=== PATIENT | female | born 1955 | race American Indian/Alaskan Native ===

== ENCOUNTER 2017-05-08 10:10 | Outpatient (CLI) | payer MEDICAID ==
--- NOTE | 2017-05-08 11:49 | Mammography Report ---
BILATERAL MAMMOGRAM: FINDINGS: The breasts are almost entirely fat (<25% glandular). No mass, distortion, suspicious calcification, or skin change is seen. No significant change when compared to exams dating back to 2015. CAD was utilized. IMPRESSION: Negative mammogram. There is no mammographic evidence of malignancy. RECOMMENDATION: Follow-up per ACS guidelines. BI-RADS CATEGORY: 1 = Negative ACR BI-RADS MAMMOGRAPHIC CODES: 0 = Needs additional imaging evaluation; 1 = Negative; 2 = Benign; 3 = Probably benign; 4 = Suspicious; 5 = Malignant; 6 = Known biopsy-proven malignancy COMMENT: 1. Dense breast tissue, i.e., adenosis, fibrocystic changes, etc., may obscure an underlying neoplasm. 2. Approximately 10% of cancers are not detected with mammography. 3. A negative mammography report should not delay biopsy if a clinically suspicious mass is present. COMMENT: Patient follow-up letters are generated in [employer].
== END 2017-05-08 10:11 | disposition home or self-care (01) ==
LOC: MAMMO 10:10
PROVIDERS: ATTEND Family Medicine
DX: Z12.31 Encounter for screening mammogram for malignant neoplasm of breast (principal); I11.0 Hypertensive heart disease with heart failure; I50.9 Heart failure, unspecified; J44.9 Chronic obstructive pulmonary disease, unspecified
CPT/HCPCS: 77067

== ENCOUNTER 2018-05-14 13:33 | Outpatient (CLI) | payer MEDICAID ==
--- NOTE | 2018-05-14 15:53 | Mammography Report ---
BILATERAL DIGITAL SCREENING MAMMOGRAM with CAD : 05/14/18 13:33:00 CLINICAL: Routine screening. COMPARISON:05/08/17 FINDINGS: The breasts are heterogeneously dense, which may obscure small masses. No mass, architectural distortion or suspicious calcifications. IMPRESSION: No mammographic evidence of malignancy. BI-RADS CATEGORY: 2 -- Benign RECOMMENDATION: Routine mammographic screening in one year. COMMENT: Patient follow-up letters are generated by our [employer] application.
== END 2018-05-14 13:34 | disposition home or self-care (01) ==
LOC: EDBD → MAMMO 13:33
PROVIDERS: ATTEND Family Medicine
DX: Z12.31 Encounter for screening mammogram for malignant neoplasm of breast (principal); I13.0 Hypertensive heart and chronic kidney disease with heart failure and stage 1 through stage 4 chronic kidney disease, or unspecified chronic kidney disease; E11.22 Type 2 diabetes mellitus with diabetic chronic kidney disease; N18.9 Chronic kidney disease, unspecified; I50.9 Heart failure, unspecified; J44.9 Chronic obstructive pulmonary disease, unspecified; M19.90 Unspecified osteoarthritis, unspecified site
CPT/HCPCS: 77067

== ENCOUNTER 2018-08-04 15:42 | Inpatient (IN) | payer MEDICAID ==
--- NOTE | 2018-08-04 17:04 | Emergency Department Report ---
HPI - General Chief Complaint: Hypoglycemia Time Seen by Provider: 08/04/18 16:57 - HPI HPI: 62-year-old Afro-[place] Islander female presents to the emergency department after having an unresponsive episode secondary to hypoglycemia. The patient has diet-controlled diabetes and did eat breakfast this morning but skipped lunch as she slept through it. Patient was found unresponsive by someone at her personal nursing home and EMS was called. She was given an amp of D50 which then woke up and then she started feeling to increase her blood sugar as well. Her Accu-Chek after this was 127. The patient also complains of some diarrhea for the past week. Otherwise she denies any fever, nausea, vomiting, abdominal pain, back pain, chest pain or shortness of breath. She has a past medical history as well of CHF, COPD, dementia, hypertension, schizophrenia. No recent travel or sick contacts at home. She says that her primary care physician is a doctor [place]. ED Past Medical Hx - Past Medical History Hx Hypertension: Yes Hx Congestive Heart Failure: Yes Hx Diabetes: Yes Hx Arthritis: Yes Hx Psychiatric Treatment: Yes (schizophrenia,bipolar,depression,anxiety) Hx Asthma: No Hx COPD: Yes Hx Dementia: Yes (early onset) Additional medical history: diabetic retinopathy - Surgical History Additional Surgical History: eye surgery - Social History Smoking Status: Never Smoker Substance Use Type: None - Medications Home Medications: Home Medications Medication Instructions Recorded Confirmed Last Taken Type Fluorometholone [Fml Forte 0.25% 1 drops OU TID 09/19/13 04/13/15 Unknown History eye drops] Ranitidine HCl [Zantac] 150 mg PO DAILY 09/19/13 04/13/15 Unknown History Simvastatin (Nf) [Zocor TAB] 40 mg PO DAILY 09/19/13 04/13/15 Unknown History Travoprost [Travatan Z 0.004%] 1 drop OU DAILY 09/19/13 04/13/15 Unknown History glipiZIDE [Glucotrol] 10 mg PO DAILY 09/19/13 04/13/15 Unknown History Aspirin [Aspirin BABY CHEW TAB] 81 mg PO DAILY 04/13/15 04/13/15 Unknown History Docusate Sodium [Colace CAP] 100 mg PO TID 04/13/15 04/13/15 Unknown History Insulin Detemir [Levemir VIAL] 35 units SQ BID 04/13/15 04/13/15 Unknown History Polyethylene Glycol 3350 [Miralax 17 gm PO DAILY 04/13/15 04/13/15 Unknown History 3350] Zofran ODT TAB 4 mg PO DAILY PRN 04/13/15 04/13/15 Unknown History Acetaminophen [Acetaminophen TAB] 650 mg PO Q6H PRN tablet 04/19/15 Unknown Rx Benztropine [Cogentin] 1 mg PO BID #60 tablet 04/19/15 Unknown Rx Brimonidine/Timolol 0.2-0.5% 1 drops OU Q12HR #1 bottle 04/19/15 Unknown Rx [Combigan 0.2-0.5%] Brinzolamide [Azopt 1%] 1 drops OU TID #90 drops.susp 04/19/15 Unknown Rx Butalb/Acetamin/Caff 50-325-40 50 mg PO DAILY PRN #30 tablet 04/19/15 Unknown Rx [Fioricet] Carvedilol [Coreg] 6.25 mg PO BID #60 tablet 04/19/15 Unknown Rx Insulin Regular, Human [HumuLIN R] See Protocol SUB-Q AC #300 units 04/19/15 Unknown Rx Lisinopril [Zestril TAB] 40 mg PO QDAY #30 tablet 04/19/15 Unknown Rx Lurasidone HCl [Latuda] 120 mg PO QDAY #30 tablet 04/19/15 Unknown Rx Ondansetron [Zofran TAB] 4 mg PO DAILY PRN #30 tablet 04/19/15 Unknown Rx Sertraline [Zoloft] 25 mg PO DAILY #30 tablet 04/19/15 Unknown Rx guaiFENesin DM [Robitussin Dm] 10 ml PO Q6H PRN #1 oral.liqd 04/19/15 Unknown Rx risperiDONE [RisperiDONE] 4 mg PO BID #60 tab.rapdis 04/19/15 Unknown Rx ED Review of Systems ROS: Stated complaint: LOW BLOOD SUGAR Other details as noted in HPI Comment: All other systems reviewed and negative Constitutional: denies: chills, fever Eyes: denies: eye pain, vision change ENT: denies: ear pain, throat pain Respiratory: denies: cough, shortness of breath Cardiovascular: syncope (unresponsive episode). denies: chest pain, palpitations Gastrointestinal: diarrhea. denies: abdominal pain, vomiting Genitourinary: denies: dysuria, hematuria Musculoskeletal: denies: back pain, arthralgia Skin: denies: rash, lesions Neurological: denies: headache, weakness Physical Exam - Physical Exam Vital Signs: Vital Signs 08/04/18 16:21 Temperature 97.3 F L Pulse Rate 58 L Respiratory 16 Rate Blood Pressure 174/69 Blood Pressure 174/69 [Right] O2 Sat by Pulse 100 Oximetry Physical Exam: GENERAL: The patient is well-developed well-nourished. HEENT: Normocephalic. Atraumatic. Patient has moist mucous membranes. EYES: Extraocular motions are intact. NECK: Supple. Trachea is midline. CHEST/LUNGS: Clear to auscultation. There is no respiratory distress noted. HEART/CARDIOVASCULAR: Regular. There is no tachycardia. There is no obvious murmur. ABDOMEN: Abdomen is soft, nontender. Patient has normal bowel sounds. There is no abdominal distention. SKIN: Skin is warm and dry. NEURO: The patient is awake, alert, and cooperative. The patient has no focal neurologic deficits. The patient has normal speech. MUSCULOSKELETAL: There is no tenderness or deformity. There is no evidence of acute injury. ED Course Vital Signs 08/04/18 16:21 Temperature 97.3 F L Pulse Rate 58 L Respiratory 16 Rate Blood Pressure 174/69 Blood Pressure 174/69 [Right] O2 Sat by Pulse 100 Oximetry ED Medical Decision Making - Lab Data Result diagrams: 08/04/18 17:27 08/04/18 17:27 - Medical Decision Making This patient presents to the emergency department after having an unresponsive episode that appears most likely secondary to hypoglycemia. She is not currently on any insulin or oral hypoglycemics but did skip lunch. She was found to have a critically low blood sugar level by EMS and was given some D50. Her blood sugar did go up upon presentation here but has gone down to critically low levels multiple times despite getting D50, juice, crackers. CT scan of the head did not really bleed, shift, mass, ischemia or any other acute process. Labs also show some renal insufficiency. First the patient was started on a D5 drip but once again her blood sugar went down to about 40 so this was now switched to a D10 drip. The patient will be admitted to the hospital for further evaluation and treatment was excepted for admission by the hospitalist, Dr. Julio. Critical Care Time: Yes Critical care time in (mins) excluding proc time.: 35 Critical care attestation.: If time is entered above; I have spent that time in minutes in the direct care of this critically ill patient, excluding procedure time. Critical care time spent on this patient during her initial evaluation, multiple re-evaluations, ordering and interpretation of labs and imaging, ordering and administration of D5 and D10 drip's. This patient has a higher probability of clinically significant, sudden, or life-threatening deterioration that has required multiple evaluations and direct attention, intervention, and management. Critical Care Time: 35 minutes ED Disposition Clinical Impression: Diabetic hypoglycemia, Unresponsive episode Chronic kidney disease (CKD) Qualifiers: Chronic kidney disease stage: unspecified stage Qualified Code(s): N18.9 - Chronic kidney disease, unspecified Hypertension Qualifiers: Hypertension type: unspecified Qualified Code(s): I10 - Essential (primary) hypertension Disposition: OP ADMIT IP TO THIS HOSP Is pt being admited?: Yes Condition: Serious Instructions: Hypertension (ED) Time of Disposition: 00:24
[2018-08-04 17:41] LABS: Basophils % (Auto) 0.4 % (0.0-1.8); Eosinophils # (Auto) 0.1 K/mm3 (0.0-0.4); Eosinophils % (Auto) 0.9 % (0.0-4.3); Hematocrit 32.4 % (30.3-42.9); Hemoglobin 10.5 gm/dl (10.1-14.3); Lymphocytes # (Auto) 0.7 K/mm3 (1.2-5.4); Lymphocytes % (Auto) 8.8 % (13.4-35.0); Mean Corpuscular HGB Conc 32 % (30-34); Mean Corpuscular Volume 89 fl (79-97); Monocytes # (Auto) 0.6 K/mm3 (0.0-0.8); Monocytes % (Auto) 7.9 % (0.0-7.3); Platelet Count 197 K/mm3 (140-440); Red Blood Count 3.65 M/mm3 (3.65-5.03); Red Cell Distribution Width 13.2 % (13.2-15.2)
[2018-08-04 17:59] LABS: Albumin 3.7 g/dL (3.9-5); Calcium 8.7 mg/dL (8.4-10.2)
[2018-08-04] MEDS ORDERED: D50W (25GM) Syringe IV ONE (18:01)
[2018-08-04] MEDS: D10W 1,000 ML IV SCH (22:30)
[2018-08-04] MEDS ORDERED: D5NS 1,000 ML IV SCH (23:00)
[2018-08-05] MEDS ORDERED: TYLENOL PO PRN (00:18)
[2018-08-05] MEDS ORDERED: ZOFRAN IV PRN (00:18)
[2018-08-05] MEDS ORDERED: SODIUM CHLORIDE FLUSH SYRINGE 10 ML IV PRN (00:18)
--- NOTE | 2018-08-05 07:07 | History and Physical Report ---
<PENNY JORDAN - Last Filed: 08/05/18 07:07> History of Present Illness Date of examination: 08/05/18 Date of admission: 08/05/18 00:40 Chief complaint: hypoglycemia History of present illness: Pt is a 62-year-old female with PMHx of CHF, COPD, dementia, hypertension, schizophrenia who was brought to the ER by EMS for hypoglycemia. Patient was [facility] the [facility] and EMS was called. Her blood sugar was reported to be in the low 20, she was given an amp of D50 which increased he blood glucose to 127. In the ER, pt states that she had skipped her lunch today because she fell asleep, she complains of some diarrhea that has been going on for 1 week, she denies any fever, nausea, vomiting, denies abd ominal pain. She was started on continuous IV infusion and admitted for further evaluation of her hypoglycemia. Past History Past Medical History: COPD, heart failure, hyperlipidemia, other (dementia, schyzophrenia) Past Surgical History: No surgical history Social history: no significant social history (lives in personal prison) Medications and Allergies Allergies Allergy/AdvReac Type Severity Reaction Status Date / Time citric acid Allergy Unknown Verified 09/16/13 12:34 haloperidol [From Haldol] Allergy Unknown Verified 09/16/13 12:34 haloperidol lactate Allergy Unknown Verified 09/16/13 12:34 [From Haldol] Home Medications Medication Instructions Recorded Confirmed Last Taken Type Fluorometholone [Fml Forte 0.25% 1 drops OU TID 09/19/13 04/13/15 Unknown History eye drops] Ranitidine HCl [Zantac] 150 mg PO DAILY 09/19/13 04/13/15 Unknown History Simvastatin (Nf) [Zocor TAB] 40 mg PO DAILY 09/19/13 04/13/15 Unknown History Travoprost [Travatan Z 0.004%] 1 drop OU DAILY 09/19/13 04/13/15 Unknown History Aspirin [Aspirin BABY CHEW TAB] 81 mg PO DAILY 04/13/15 04/13/15 Unknown History Docusate Sodium [Colace CAP] 100 mg PO TID 04/13/15 04/13/15 Unknown History Polyethylene Glycol 3350 [Miralax 17 gm PO DAILY 04/13/15 04/13/15 Unknown History 3350] Acetaminophen [Acetaminophen TAB] 650 mg PO Q6H PRN tablet 04/19/15 Unknown Rx Benztropine [Cogentin] 1 mg PO BID #60 tablet 04/19/15 Unknown Rx Brimonidine/Timolol 0.2-0.5% 1 drops OU Q12HR #1 bottle 04/19/15 Unknown Rx [Combigan 0.2-0.5%] Brinzolamide [Azopt 1%] 1 drops OU TID #90 drops.susp 04/19/15 Unknown Rx Butalb/Acetamin/Caff 50-325-40 50 mg PO DAILY PRN #30 tablet 04/19/15 Unknown Rx [Fioricet] Carvedilol [Coreg] 6.25 mg PO BID #60 tablet 04/19/15 Unknown Rx Lurasidone HCl [Latuda] 120 mg PO QDAY #30 tablet 04/19/15 Unknown Rx Ondansetron [Zofran TAB] 4 mg PO DAILY PRN #30 tablet 04/19/15 Unknown Rx Sertraline [Zoloft] 25 mg PO DAILY #30 tablet 04/19/15 Unknown Rx guaiFENesin DM [Robitussin Dm] 10 ml PO Q6H PRN #1 oral.liqd 04/19/15 Unknown Rx risperiDONE [RisperiDONE] 4 mg PO BID #60 tab.rapdis 04/19/15 Unknown Rx Dextrose 50% in Water [D50W (25GM) 50 ml IV PRN PRN syringe 08/08/18 Unknown Rx Syringe] hydrALAZINE [Apresoline TAB] 25 mg PO BID #60 tablet 08/08/18 Unknown Rx Active Meds: Active Medications Acetaminophen (Tylenol) 650 mg PO Q4H PRN PRN Reason: Pain MILD(1-3)/Fever >100.5/MORA Dextrose (D10w) 1,000 mls @ 100 mls/hr IV DIRECT AMA Last Admin: 08/04/18 22:30 Dose: 100 mls/hr Documented by: Ondansetron HCl (Zofran) 4 mg IV Q8H PRN PRN Reason: Nausea And Vomiting Sodium Chloride (Sodium Chloride Flush Syringe 10 Ml) 10 ml IV BID AMA Sodium Chloride (Sodium Chloride Flush Syringe 10 Ml) 10 ml IV PRN PRN PRN Reason: LINE FLUSH Exam - Constitutional Vitals: Temp Pulse Resp BP Pulse Ox 98.2 F 68 13 182/80 100 08/05/18 01:40 08/05/18 06:16 08/05/18 06:16 08/05/18 06:16 08/05/18 06:16 General appearance: Present: mild distress - EENT Eyes: Present: EOM intact ENT: hearing intact - Neck Neck: Present: normal ROM - Respiratory Respiratory: right: diminished - Cardiovascular Rhythm: regular Heart Sounds: Present: S1 & S2 Peripheral Pulses: within normal limits - Abdominal General gastrointestinal: Present: non-tender, non-distended Female genitourinary: Present: deferred - Rectal Rectal Exam: deferred - Integumentary Integumentary: Present: warm - Musculoskeletal Musculoskeletal: strength equal bilaterally - Psychiatric Psychiatric: cooperative - Neurologic Neurologic: moves all extremities Results - Labs CBC & Chem 7: 08/04/18 17:27 08/04/18 17:27 Labs: Laboratory Last Values WBC 8.0 K/mm3 (4.5-11.0) 08/04/18 17:27 RBC 3.65 M/mm3 (3.65-5.03) 08/04/18 17:27 Hgb 10.5 gm/dl (10.1-14.3) 08/04/18 17:27 Hct 32.4 % (30.3-42.9) 08/04/18 17:27 MCV 89 fl (79-97) 08/04/18 17:27 MCH 29 pg (28-32) 08/04/18 17:27 MCHC 32 % (30-34) 08/04/18 17:27 RDW 13.2 % (13.2-15.2) 08/04/18 17:27 Plt Count 197 K/mm3 (140-440) 08/04/18 17:27 Lymph % (Auto) 8.8 % (13.4-35.0) L 08/04/18 17:27 [place] % (Auto) 7.9 % (0.0-7.3) H 08/04/18 17:27 Eos % (Auto) 0.9 % (0.0-4.3) 08/04/18 17:27 Baso % (Auto) 0.4 % (0.0-1.8) 08/04/18 17:27 Lymph # 0.7 K/mm3 (1.2-5.4) L 08/04/18 17:27 [place] # 0.6 K/mm3 (0.0-0.8) 08/04/18 17:27 Eos # 0.1 K/mm3 (0.0-0.4) 08/04/18 17:27 Baso # 0.0 K/mm3 (0.0-0.1) 08/04/18 17:27 Seg Neutrophils % 82.0 % (40.0-70.0) H 08/04/18 17:27 Seg Neutrophils # 6.6 K/mm3 (1.8-7.7) 08/04/18 17:27 VBG pH 7.275 (7.320-7.420) L 08/04/18 17:27 Sodium 144 mmol/L (137-145) 08/04/18 17:27 Potassium 3.7 mmol/L (3.6-5.0) 08/04/18 17:27 Chloride 110.2 mmol/L (98-107) H 08/04/18 17:27 Carbon Dioxide 24 mmol/L (22-30) 08/04/18 17:27 Anion Gap 14 mmol/L 08/04/18 17:27 BUN 34 mg/dL (7-17) H 08/04/18 17:27 Creatinine 1.9 mg/dL (0.7-1.2) H 08/04/18 17:27 Estimated GFR 32 ml/min 08/04/18 17:27 BUN/Creatinine Ratio 18 % 08/04/18 17:27 Glucose 47 mg/dL (65-100) L 08/04/18 17:27 POC Glucose 74 (70-105) 08/05/18 06:50 Calcium 8.7 mg/dL (8.4-10.2) 08/04/18 17:27 Total Bilirubin 0.30 mg/dL (0.1-1.2) 08/04/18 17:27 AST 13 units/L (5-40) 08/04/18 17:27 ALT 8 units/L (7-56) 08/04/18 17:27 Alkaline Phosphatase 60 units/L (35-129) 08/04/18 17:27 Total Protein 6.6 g/dL (6.3-8.2) 08/04/18 17:27 Albumin 3.7 g/dL (3.9-5) L 08/04/18 17:27 Albumin/Globulin Ratio 1.3 % 08/04/18 17:27 TSH 1.100 mlU/mL (0.270-4.200) 08/04/18 17:27 Assessment and Plan Assessment and plan: 1. Hypoglycemia 2. CHF (stable) next 3. COPD (stable) 4. Hypertension 5. Dementia 6. Schizophrenia Plan: Patient is admitted for hypoglycemia Monitor blood glucose every 4 hours Continue glycemic management IV fluid with D5 at 50 per hour Resume diet Resume home meds Plan of care discussed with the patient, needs reinforcement Patient's condition and plan of care discussed with Dr. Julio Advance Directives: Yes VTE prophylaxis?: Chemical Plan of care discussed with patient/family: Yes <PAULINO JULIO - Last Filed: 08/12/18 21:17> History of Present Illness Date of admission: 08/05/18 00:40 Exam - Constitutional Vitals: Temp Pulse Resp BP Pulse Ox 98.6 F 72 18 142/70 97 08/08/18 08:51 08/08/18 15:54 08/08/18 10:00 08/08/18 15:54 08/08/18 08:51 Results - Labs CBC & Chem 7: 08/06/18 04:44 08/07/18 04:40 Labs: Laboratory Last Values WBC 4.2 K/mm3 (4.5-11.0) L 08/06/18 04:44 RBC 3.52 M/mm3 (3.65-5.03) L 08/06/18 04:44 Hgb 10.0 gm/dl (10.1-14.3) L 08/06/18 04:44 Hct 31.2 % (30.3-42.9) 08/06/18 04:44 MCV 89 fl (79-97) 08/06/18 04:44 MCH 29 pg (28-32) 08/06/18 04:44 MCHC 32 % (30-34) 08/06/18 04:44 RDW 13.2 % (13.2-15.2) 08/06/18 04:44 Plt Count 181 K/mm3 (140-440) 08/06/18 04:44 Lymph % (Auto) 8.8 % (13.4-35.0) L 08/04/18 17:27 [place] % (Auto) Journeyman Carpenter 08/06/18 04:44 Eos % (Auto) 0.9 % (0.0-4.3) 08/04/18 17:27 Baso % (Auto) 0.4 % (0.0-1.8) 08/04/18 17:27 Lymph # 0.7 K/mm3 (1.2-5.4) L 08/04/18 17:27 [place] # 0.6 K/mm3 (0.0-0.8) 08/04/18 17:27 Eos # 0.1 K/mm3 (0.0-0.4) 08/04/18 17: Baso # 0.0 K/mm3 (0.0-0.1) 08/04/18 17:27 Add Manual Diff Complete 08/06/18 04:44 Total Counted 100 08/06/18 04:44 Seg Neutrophils % 82.0 % (40.0-70.0) H 08/04/18 17:27 Seg Neuts % (Manual) 57.0 % (40.0-70.0) 08/06/18 04:44 Band Neutrophils % 0 % 08/06/18 04:44 Lymphocytes % (Manual) 32.0 % (13.4-35.0) 08/06/18 04:44 Reactive Lymphs % (Man) 0 % 08/06/18 04:44 Monocytes % (Manual) 4.0 % (0.0-7.3) 08/06/18 04:44 Eosinophils % (Manual) 7.0 % (0.0-4.3) H 08/06/18 04:44 Basophils % (Manual) 0 % (0.0-1.8) 08/06/18 04:44 Metamyelocytes % 0 % 08/06/18 04:44 Myelocytes % 0 % 08/06/18 04:44 Promyelocytes % 0 % 08/06/18 04:44 Blast Cells % 0 % 08/06/18 04:44 Nucleated RBC % Not Reportable 08/06/18 04:44 Seg Neutrophils # 6.6 K/mm3 (1.8-7.7) 08/04/18 17:27 Seg Neutrophils # Man 2.4 K/mm3 (1.8-7.7) 08/06/18 04:44 Band Neutrophils # 0.0 K/mm3 08/06/18 04:44 Lymphocytes # (Manual) 1.3 K/mm3 (1.2-5.4) 08/06/18 04:44 Abs React Lymphs (Man) 0.0 K/mm3 08/06/18 04:44 Monocytes # (Manual) 0.2 K/mm3 (0.0-0.8) 08/06/18 04:44 Eosinophils # (Manual) 0.3 K/mm3 (0.0-0.4) 08/06/18 04:44 Basophils # (Manual) 0.0 K/mm3 (0.0-0.1) 08/06/18 04:44 Metamyelocytes # 0.0 K/mm3 08/06/18 04:44 Myelocytes # 0.0 K/mm3 08/06/18 04:44 Promyelocytes # 0.0 K/mm3 08/06/18 04:44 Blast Cells # 0.0 K/mm3 08/06/18 04:44 WBC Morphology Not Reportable 08/06/18 04:44 Hypersegmented Neuts Not Reportable 08/06/18 04:44 Hyposegmented Neuts Not Reportable 08/06/18 04:44 Hypogranular Neuts Not Reportable 08/06/18 04:44 Smudge Cells Not Reportable 08/06/18 04:44 Toxic Granulation Not Reportable 08/06/18 04:44 Toxic Vacuolation Not Reportable 08/06/18 04:44 Dohle Bodies Not Reportable 08/06/18 04:44 Pelger-Huet Anomaly Not Reportable 08/06/18 04:44 Angel Luis Rods Not Reportable 08/06/18 04:44 Platelet Estimate Consistent w auto 08/06/18 04:44 Clumped Platelets Not Reportable 08/06/18 04:44 Plt Clumps, EDTA Not Reportable 08/06/18 04:44 Large Platelets Not Reportable 08/06/18 04:44 Giant Platelets Not Reportable 08/06/18 04:44 Platelet Satelliting Not Reportable 08/06/18 04:44 Plt Morphology Comment Not Reportable 08/06/18 04:44 RBC Morphology Not Reportable 08/06/18 04:44 Dimorphic RBCs Not Reportable 08/06/18 04:44 Polychromasia Not Reportable 08/06/18 04:44 Hypochromasia 1+ 08/06/18 04:44 Poikilocytosis Not Reportable 08/06/18 04:44 Anisocytosis Not Reportable 08/06/18 04:44 Microcytosis Not Reportable 08/06/18 04:44 Macrocytosis Not Reportable 08/06/18 04:44 Spherocytes Not Reportable 08/06/18 04:44 Pappenheimer Bodies Not Reportable 08/06/18 04:44 Sickle Cells Not Reportable 08/06/18 04:44 Target Cells Not Reportable 08/06/18 04:44 Tear Drop Cells Not Reportable 08/06/18 04:44 Ovalocytes Not Reportable 08/06/18 04:44 Helmet Cells Not Reportable 08/06/18 04:44 [place] Bodies Not Reportable 08/06/18 04:44 [place] Rings Not Reportable 08/06/18 04:44 Jessica Cells Not Reportable 08/06/18 04:44 Bite Cells Not Reportable 08/06/18 04:44 Crenated Cell Not Reportable 08/06/18 04:44 Elliptocytes Not Reportable 08/06/18 04:44 Acanthocytes (Spur) Not Reportable 08/06/18 04:44 Rouleaux Not Reportable 08/06/18 04:44 Hemoglobin C Crystals Not Reportable 08/06/18 04:44 Schistocytes Not Reportable 08/06/18 04:44 Malaria parasites Not Reportable 08/06/18 04:44 Jorje Bodies Not Reportable 08/06/18 04:44 Hem Pathologist Commnt No 08/06/18 04:44 VBG pH 7.275 (7.320-7.420) L 08/04/18 17:27 Sodium 139 mmol/L (137-145) 08/07/18 04:40 Potassium 4.8 mmol/L (3.6-5.0) 08/07/18 04:40 Chloride 104.6 mmol/L (98-107) 08/07/18 04:40 Carbon Dioxide 23 mmol/L (22-30) 08/07/18 04:40 Anion Gap 16 mmol/L 08/07/18 04:40 BUN 32 mg/dL (7-17) H 08/07/18 04:40 Creatinine 1.9 mg/dL (0.7-1.2) H 08/07/18 04:40 Estimated GFR 32 ml/min 08/07/18 04:40 BUN/Creatinine Ratio 17 % 08/07/18 04:40 Glucose 142 mg/dL (65-100) H 08/07/18 04:40 POC Glucose 107 (70-105) H 08/08/18 17:30 Hemoglobin A1c 5.7 % (4-6) 08/06/18 04:44 Calcium 8.3 mg/dL (8.4-10.2) L 08/07/18 04:40 Phosphorus 3.00 mg/dL (2.5-4.5) 08/06/18 04:44 Magnesium 2.10 mg/dL (1.7-2.3) 08/07/18 04:40 Total Bilirubin 0.30 mg/dL (0.1-1.2) 08/04/18 17:27 AST 13 units/L (5-40) 08/04/18 17:27 ALT 8 units/L (7-56) 08/04/18 17:27 Alkaline Phosphatase 60 units/L (35-129) 08/04/18 17:27 Total Protein 6.6 g/dL (6.3-8.2) 08/04/18 17:27 Albumin 3.7 g/dL (3.9-5) L 08/04/18 17:27 Albumin/Globulin Ratio 1.3 % 08/04/18 17:27 TSH 1.100 mlU/mL (0.270-4.200) 08/04/18 17:27 Assessment and Plan Assessment and plan: Patient discussed with the SLITTER CREASER SLOTTER OPERATOR-C, I agree with the above documentations.
[2018-08-05] MEDS ORDERED: D5NS 0.2% 0 ML IV ONE (10:06)
--- NOTE | 2018-08-05 11:49 | Progress Note ---
Assessment and Plan Assessment and plan: -- Hypoglycemia; Minimal improvement and continue D10W Accu-Cheks, D50 as needed, hold all the oral hypoglycemics and insulin Check A1c, diabetic education when patient is stable --Type 2 diabetes mellitus; on insulin and oral hypoglycemics at home No hypoglycemia, hold all the medications and closely monitor sugars --Hypertension; moderate control, resume home antihypertensives and when necessary medications --Chronic mild systolic congestive heart failure; Ejection fraction 45-50%, continue current management --Dyslipidemia; continue statin --Acute kidney injury; secondary to ATN Gentle hydration, avoid nephrotoxins Nephrology evaluation if no improvement --Dementia; supportive care --History of schizophrenia; continue current psych medications Psych evaluation if needed --DVT prophylaxis; Lovenox --Full CODE STATUS Closely monitor the patient and adjust the management as needed Plan of care reviewed with the patient and her nurse History Interval history: Patient seen and examined medical records reviewed Admitted with hypoglycemia, on D10W Blood sugars are 114 and 89, Patient feels slightly better Vital signs noted Hospitalist Physical - Constitutional Vitals: Temp Pulse Resp BP Pulse Ox 97.9 F 68 16 170/70 98 08/05/18 10:43 08/05/18 10:43 08/05/18 10:43 08/05/18 10:43 08/05/18 08:00 General appearance: Present: no acute distress, well-nourished, other (confused) - EENT Eyes: Present: PERRL, EOM intact - Neck Neck: Present: supple, normal ROM - Respiratory Respiratory effort: normal Respiratory: bilateral: diminished, negative: rales, rhonchi - Cardiovascular Rhythm: regular Heart Sounds: Present: S1 & S2 - Extremities Extremities: no ischemia, No edema - Abdominal General gastrointestinal: soft, non-tender, non-distended, normal bowel sounds - Integumentary Integumentary: Present: clear, warm - Psychiatric Psychiatric: appropriate mood/affect, other (confused) - Neurologic Neurologic: CNII-XII intact, moves all extremities Results - Labs CBC & Chem 7: 08/04/18 17:27 08/04/18 17:27 Labs: Laboratory Last Values WBC 8.0 K/mm3 (4.5-11.0) 08/04/18 17:27 RBC 3.65 M/mm3 (3.65-5.03) 08/04/18 17: Hgb 10.5 gm/dl (10.1-14.3) 08/04/18: Hct 32.4 % (30.3-42.9) 08/04/18: MCV 89 fl (79-97) 08/04/18 17: MCH 29 pg (28-32) 08/04/18: MCHC 32 % (30-34) 08/04/18: RDW 13.2 % (13.2-15.2) 08/04/18: Plt Count 197 K/mm3 (140-440) 08/04/18: Lymph % (Auto) 8.8 % (13.4-35.0) L 08/04/18: [place] % (Auto) 7.9 % (0.0-7.3) H 08/04/18: Eos % (Auto) 0.9 % (0.0-4.3) 08/04/18: Baso % (Auto) 0.4 % (0.0-1.8) 08/04/18: Lymph # 0.7 K/mm3 (1.2-5.4) L 08/04/18: [place] # 0.6 K/mm3 (0.0-0.8) 08/04/18: Eos # 0.1 K/mm3 (0.0-0.4) 08/04/18: Baso # 0.0 K/mm3 (0.0-0.1) 08/04/18: Seg Neutrophils % 82.0 % (40.0-70.0) H 08/04/18: Seg Neutrophils # 6.6 K/mm3 (1.8-7.7) 08/04/18: VBG pH 7.275 (7.320-7.420) L 08/04/18 17: Sodium 144 mmol/L (137-145) 08/04/18: Potassium 3.7 mmol/L (3.6-5.0) 08/04/18: Chloride 110.2 mmol/L (98-107) H 08/04/18: Carbon Dioxide 24 mmol/L (22-30) 08/04/18 17:27 Anion Gap 14 mmol/L 08/04/18 17:27 BUN 34 mg/dL (7-17) H 08/04/18 17:27 Creatinine 1.9 mg/dL (0.7-1.2) H 08/04/18 17:27 Estimated GFR 32 ml/min 08/04/18 17:27 BUN/Creatinine Ratio 18 % 08/04/18 17:27 Glucose 47 mg/dL (65-100) L 08/04/18 17:27 POC Glucose 74 (70-105) 08/05/18 06:50 Calcium 8.7 mg/dL (8.4-10.2) 08/04/18 17:27 Total Bilirubin 0.30 mg/dL (0.1-1.2) 08/04/18 17:27 AST 13 units/L (5-40) 08/04/18 17:27 ALT 8 units/L (7-56) 08/04/18 17:27 Alkaline Phosphatase 60 units/L (35-129) 08/04/18 17:27 Total Protein 6.6 g/dL (6.3-8.2) 08/04/18 17:27 Albumin 3.7 g/dL (3.9-5) L 08/04/18 17:27 Albumin/Globulin Ratio 1.3 % 08/04/18 17:27 TSH 1.100 mlU/mL (0.270-4.200) 08/04/18 17:27 Active Medications - Current Medications Current Medications: Generic Name Dose Route Start Last Admin Trade Name Abdielq PRN Reason Stop Dose Admin Acetaminophen 650 mg 08/05/18 00:18 Tylenol PO Q4H PRN Pain MILD(1-3)/Fever >100.5/MORA Dextrose 1,000 mls @ 100 mls/hr 08/05/18 00:00 08/04/18 22:30 D10w IV 100 mls/hr DIRECT AMA Administration Ondansetron HCl 4 mg 08/05/18 00:18 Zofran IV Q8H PRN Nausea And Vomiting Sodium Chloride 10 ml 08/05/18 10:00 Sodium Chloride Flush Syringe 10 Ml IV BID AMA Sodium Chloride 10 ml 08/05/18 00:18 Sodium Chloride Flush Syringe 10 Ml IV PRN PRN LINE FLUSH
[2018-08-05] MEDS ORDERED: FIORICET PO PRN (19:11)
[2018-08-05] MEDS ORDERED: D50W (25GM) Syringe IV PRN (19:14)
[2018-08-05] MEDS ORDERED: RISPERIDONE 4 MG PO SCH (22:00)
[2018-08-05] MEDS: COGENTIN PO SCH (22:56)
[2018-08-05] MEDS: RisperDAL PO SCH ×2 (22:56→22:58)
[2018-08-05] MEDS: COREG PO SCH (22:56)
[2018-08-05] MEDS: SODIUM CHLORIDE FLUSH SYRINGE 10 ML IV SCH (22:56)
[2018-08-05] MEDS: COMBIGAN 0.2-0.5% OU SCH (22:57)
[2018-08-05] MEDS: HumaLOG SUB-Q SCH (22:57)
[2018-08-06 05:49] LABS: Hematocrit 31.2 % (30.3-42.9); Mean Corpuscular HGB Conc 32 % (30-34); Mean Corpuscular Volume 89 fl (79-97); Platelet Count 181 K/mm3 (140-440); Red Blood Count 3.52 M/mm3 (3.65-5.03); Red Cell Distribution Width 13.2 % (13.2-15.2)
[2018-08-06 06:25] LABS: Calcium 8.2 mg/dL (8.4-10.2)
[2018-08-06 07:06] LABS: Basophils % (Manual) 0 % (0.0-1.8); Total Cells Counted 100
[2018-08-06 07:07] LABS: Hypochromasia 1+; Platelet Estimate Consistent w Auto
[2018-08-06] MEDS: HumaLOG SUB-Q SCH ×4 (08:29→21:53)
[2018-08-06] MEDS: LOVENOX SUB-Q SCH (09:00)
[2018-08-06] MEDS: RisperDAL PO SCH ×4 (09:01→21:46)
[2018-08-06] MEDS: COREG PO SCH ×2 (09:01→21:45)
[2018-08-06] MEDS: COGENTIN PO SCH ×2 (09:02→21:49)
[2018-08-06] MEDS: BABY ASPIRIN PO SCH (09:02)
[2018-08-06] MEDS: COMBIGAN 0.2-0.5% OU SCH ×2 (09:03→21:45)
[2018-08-06] MEDS: SODIUM CHLORIDE FLUSH SYRINGE 10 ML IV SCH ×3 (09:14→21:46)
--- NOTE | 2018-08-06 11:16 | Progress Note ---
Assessment and Plan Assessment and plan: --Metabolic encephalopathy; due to hypoglycemia Significantly improved, alert awake oriented 3 confused at times -- Hypoglycemia; resolved Patient's hemoglobin A1c is < 6 hold all the diabetes medicines continue D10 Accu-Cheks, D50 as needed, hold all the oral hypoglycemics and insulin Check A1c, diabetic education when patient is stable --Type 2 diabetes mellitus; patient's blood sugars were in the lower range Hold all the diabetic medications and --Hypertension; moderate control, resume home antihypertensives and when necessary medications --Chronic mild systolic congestive heart failure; Ejection fraction 45-50%, continue current management --Dyslipidemia; continue statin --Acute kidney injury; secondary to ATN Gentle hydration, avoid nephrotoxins Nephrology evaluation if no improvement --Dementia; supportive care --History of schizophrenia; continue current psych medications Psych evaluation if needed --DVT prophylaxis; Lovenox --Full CODE STATUS Closely monitor the patient and adjust the management as needed Plan of care reviewed with the patient and her nurse History Interval history: Patient seen and examined medical records reviewed No new events reported by the nursing staff Patient remains on D10, blood sugars on the lower range Patient is alert and awake responding appropriately Vital signs noted Hospitalist Physical - Constitutional Vitals: Temp Pulse Resp BP Pulse Ox 98.0 F 64 18 179/73 97 08/06/18 07:43 08/06/18 09:01 08/06/18 07:43 08/06/18 09:01 08/06/18 04:39 General appearance: Present: no acute distress, well-nourished, other (confused) - EENT Eyes: Present: PERRL, EOM intact - Neck Neck: Present: supple, normal ROM - Respiratory Respiratory effort: normal Respiratory: bilateral: diminished, negative: rales, rhonchi, wheezing - Cardiovascular Rhythm: regular Heart Sounds: Present: S1 & S2 - Extremities Extremities: no ischemia, No edema - Abdominal General gastrointestinal: soft, non-tender, non-distended, normal bowel sounds - Integumentary Integumentary: Present: clear, warm - Psychiatric Psychiatric: appropriate mood/affect, cooperative, other (confused at time) - Neurologic Neurologic: CNII-XII intact, moves all extremities Results - Labs CBC & Chem 7: 08/06/18 04:44 08/06/18 04:44 Labs: Laboratory Last Values WBC 4.2 K/mm3 (4.5-11.0) L 08/06/18 04:44 RBC 3.52 M/mm3 (3.65-5.03) L 08/06/18 04:44 Hgb 10.0 gm/dl (10.1-14.3) L 08/06/18 04:44 Hct 31.2 % (30.3-42.9) 08/06/18 04:44 MCV 89 fl (79-97) 08/06/18 04:44 MCH 29 pg (28-32) 08/06/18 04:44 MCHC 32 % (30-34) 08/06/18 04:44 RDW 13.2 % (13.2-15.2) 08/06/18 04:44 Plt Count 181 K/mm3 (140-440) 08/06/18 04:44 Lymph % (Auto) 8.8 % (13.4-35.0) L 08/04/18 17:27 [place] % (Auto) Securities Teller 08/06/18 04:44 Eos % (Auto) 0.9 % (0.0-4.3) 08/04/18 17:27 Baso % (Auto) 0.4 % (0.0-1.8) 08/04/18 17:27 Lymph # 0.7 K/mm3 (1.2-5.4) L 08/04/18 17:27 [place] # 0.6 K/mm3 (0.0-0.8) 08/04/18 17:27 Eos # 0.1 K/mm3 (0.0-0.4) 08/04/18 17:27 Baso # 0.0 K/mm3 (0.0-0.1) 08/04/18 17:27 Add Manual Diff Complete 08/06/18 04:44 Total Counted 100 08/06/18 04:44 Seg Neutrophils % 82.0 % (40.0-70.0) H 08/04/18 17:27 Seg Neuts % (Manual) 57.0 % (40.0-70.0) 08/06/18 04:44 Band Neutrophils % 0 % 08/06/18 04:44 Lymphocytes % (Manual) 32.0 % (13.4-35.0) 08/06/18 04:44 Reactive Lymphs % (Man) 0 % 08/06/18 04:44 Monocytes % (Manual) 4.0 % (0.0-7.3) 08/06/18 04:44 Eosinophils % (Manual) 7.0 % (0.0-4.3) H 08/06/18 04:44 Basophils % (Manual) 0 % (0.0-1.8) 08/06/18 04:44 Metamyelocytes % 0 % 08/06/18 04:44 Myelocytes % 0 % 08/06/18 04:44 Promyelocytes % 0 % 08/06/18 04:44 Blast Cells % 0 % 08/06/18 04:44 Nucleated RBC % Not Reportable 08/06/18 04:44 Seg Neutrophils # 6.6 K/mm3 (1.8-7.7) 08/04/18 17:27 Seg Neutrophils # Man 2.4 K/mm3 (1.8-7.7) 08/06/18 04:44 Band Neutrophils # 0.0 K/mm3 08/06/18 04:44 Lymphocytes # (Manual) 1.3 K/mm3 (1.2-5.4) 08/06/18 04:44 Abs React Lymphs (Man) 0.0 K/mm3 08/06/18 04:44 Monocytes # (Manual) 0.2 K/mm3 (0.0-0.8) 08/06/18 04:44 Eosinophils # (Manual) 0.3 K/mm3 (0.0-0.4) 08/06/18 04:44 Basophils # (Manual) 0.0 K/mm3 (0.0-0.1) 08/06/18 04:44 Metamyelocytes # 0.0 K/mm3 08/06/18 04:44 Myelocytes # 0.0 K/mm3 08/06/18 04:44 Promyelocytes # 0.0 K/mm3 08/06/18 04:44 Blast Cells # 0.0 K/mm3 08/06/18 04:44 WBC Morphology Not Reportable 08/06/18 04:44 Hypersegmented Neuts Not Reportable 08/06/18 04:44 Hyposegmented Neuts Not Reportable 08/06/18 04:44 Hypogranular Neuts Not Reportable 08/06/18 04:44 Smudge Cells Not Reportable 08/06/18 04:44 Toxic Granulation Not Reportable 08/06/18 04:44 Toxic Vacuolation Not Reportable 08/06/18 04:44 Dohle Bodies Not Reportable 08/06/18 04:44 Pelger-Huet Anomaly Not Reportable 08/06/18 04:44 Angel Luis Rods Not Reportable 08/06/18 04:44 Platelet Estimate Consistent w auto 08/06/18 04:44 Clumped Platelets Not Reportable 08/06/18 04:44 Plt Clumps, EDTA Not Reportable 08/06/18 04:44 Large Platelets Not Reportable 08/06/18 04:44 Giant Platelets Not Reportable 08/06/18 04:44 Platelet Satelliting Not Reportable 08/06/18 04:44 Plt Morphology Comment Not Reportable 08/06/18 04:44 RBC Morphology Not Reportable 08/06/18 04:44 Dimorphic RBCs Not Reportable 08/06/18 04:44 Polychromasia Not Reportable 08/06/18 04:44 Hypochromasia 1+ 08/06/18 04:44 Poikilocytosis Not Reportable 08/06/18 04:44 Anisocytosis Not Reportable 08/06/18 04:44 Microcytosis Not Reportable 08/06/18 04:44 Macrocytosis Not Reportable 08/06/18 04:44 Spherocytes Not Reportable 08/06/18 04:44 Pappenheimer Bodies Not Reportable 08/06/18 04:44 Sickle Cells Not Reportable 08/06/18 04:44 Target Cells Not Reportable 08/06/18 04:44 Tear Drop Cells Not Reportable 08/06/18 04:44 Ovalocytes Not Reportable 08/06/18 04:44 Helmet Cells Not Reportable 08/06/18 04:44 Cline-Blunt Bodies Not Reportable 08/06/18 04:44 [place] Rings Not Reportable 08/06/18 04:44 [place] Cells Not Reportable 08/06/18 04:44 Bite Cells Not Reportable 08/06/18 04:44 Crenated Cell Not Reportable 08/06/18 04:44 Elliptocytes Not Reportable 08/06/18 04:44 Acanthocytes (Spur) Not Reportable 08/06/18 04:44 Rouleaux Not Reportable 08/06/18 04:44 Hemoglobin C Crystals Not Reportable 08/06/18 04:44 Schistocytes Not Reportable 08/06/18 04:44 Malaria parasites Not Reportable 08/06/18 04:44 Jorje Bodies Not Reportable 08/06/18 04:44 Hem Pathologist Commnt No 08/06/18 04:44 VBG pH 7.275 (7.320-7.420) L 08/04/18 17:27 Sodium 135 mmol/L (137-145) L D 08/06/18 04:44 Potassium 4.4 mmol/L (3.6-5.0) 08/06/18 04:44 Chloride 104.3 mmol/L (98-107) 08/06/18 04:44 Carbon Dioxide 22 mmol/L (22-30) 08/06/18 04:44 Anion Gap 13 mmol/L 08/06/18 04:44 BUN 27 mg/dL (7-17) H 08/06/18 04:44 Creatinine 1.7 mg/dL (0.7-1.2) H 08/06/18 04:44 Estimated GFR 37 ml/min 08/06/18 04:44 BUN/Creatinine Ratio 16 % 08/06/18 04:44 Glucose 107 mg/dL (65-100) H 08/06/18 04:44 POC Glucose 113 (70-105) H 08/06/18 07:45 Hemoglobin A1c 5.7 % (4-6) 08/06/18 04:44 Calcium 8.2 mg/dL (8.4-10.2) L 08/06/18 04:44 Phosphorus 3.00 mg/dL (2.5-4.5) 08/06/18 04:44 Magnesium 2.00 mg/dL (1.7-2.3) 08/06/18 04:44 Total Bilirubin 0.30 mg/dL (0.1-1.2) 08/04/18 17:27 AST 13 units/L (5-40) 08/04/18 17:27 ALT 8 units/L (7-56) 08/04/18 17:27 Alkaline Phosphatase 60 units/L (35-129) 08/04/18 17:27 Total Protein 6.6 g/dL (6.3-8.2) 08/04/18 17:27 Albumin 3.7 g/dL (3.9-5) L 08/04/18 17:27 Albumin/Globulin Ratio 1.3 % 08/04/18 17:27 TSH 1.100 mlU/mL (0.270-4.200) 08/04/18 17:27 Active Medications - Current Medications Current Medications: Generic Name Dose Route Start Last Admin Trade Name Freq PRN Reason Stop Dose Admin Acetaminophen 650 mg 08/05/18 00:18 Tylenol PO Q4H PRN Pain MILD(1-3)/Fever >100.5/MORA Acetaminophen/Butalbital/Caffeine 1 tab 08/05/18 19:11 Fioricet PO DAILY PRN Headache Aspirin 81 mg 08/06/18 10:00 08/06/18 09:02 Baby Aspirin PO 81 mg DAILY AMA Administration Benztropine Mesylate 1 mg 08/05/18 22:00 08/06/18 09:02 Cogentin PO 1 mg BID AMA Administration Brimonidine/Timolol 1 drops 08/05/18 22:00 08/06/18 09:03 Combigan 0.2-0.5% OU 1 drops Q12HR AMA Administration Carvedilol 6.25 mg 08/05/18 22:00 08/06/18 09:01 Coreg PO 6.25 mg BID AMA Administration Dextrose 50 ml 08/05/18 19:14 D50w (25gm) Syringe IV PRN PRN Hypoglycemia Enoxaparin Sodium 30 mg 08/06/18 10:00 08/06/18 09:00 Lovenox SUB-Q 30 mg QDAY AMA Administration Dextrose 1,000 mls @ 100 mls/hr 08/05/18 00:00 08/04/18 22:30 D10w IV 100 mls/hr DIRECT AMA Administration Insulin Human Lispro 0 unit 08/05/18 22:00 08/06/18 08:29 Humalog SUB-Q Not Given [facility]S [facility] Protocol Miscellaneous Medication 1 drops 08/05/18 20:00 Brinzolamide [Azopt 1%] OU TID AMA Ondansetron HCl 4 mg 08/05/18 00:18 Zofran IV Q8H PRN Nausea And Vomiting Risperidone 1 mg 08/05/18 22:00 08/06/18 09:01 Risperdal PO 1 mg BID AMA Administration Risperidone 3 mg 08/05/18 22:00 08/05/18 22:58 Risperdal PO 3 mg BID AMA Administration Sodium Chloride 10 ml 08/05/18 10:00 08/06/18 09:14 Sodium Chloride Flush Syringe 10 Ml IV 10 ml BID AMA Administration Sodium Chloride 10 ml 08/05/18 00:18 Sodium Chloride Flush Syringe 10 Ml IV PRN PRN LINE FLUSH
[2018-08-06] MEDS ORDERED: APRESOLINE IV PRN (11:23)
[2018-08-06] MEDS: APRESOLINE PO SCH ×2 (15:19→21:45)
[2018-08-06] MEDS: BRINZOLAMIDE OU SCH (21:54)
[2018-08-07 05:58] LABS: Calcium 8.3 mg/dL (8.4-10.2)
[2018-08-07] MEDS: APRESOLINE PO SCH ×4 (06:11→22:27)
[2018-08-07] MEDS: D10W 1,000 ML IV SCH (06:20)
[2018-08-07] MEDS: HumaLOG SUB-Q SCH ×4 (08:27→20:59)
[2018-08-07] MEDS: LOVENOX SUB-Q SCH (09:19)
[2018-08-07] MEDS: COGENTIN PO SCH ×3 (09:21→22:27)
[2018-08-07] MEDS: BABY ASPIRIN PO SCH (09:21)
[2018-08-07] MEDS: RisperDAL PO SCH ×6 (09:21→22:28)
[2018-08-07] MEDS: COMBIGAN 0.2-0.5% OU SCH ×3 (09:22→22:27)
[2018-08-07] MEDS: COREG PO SCH ×3 (09:24→22:27)
[2018-08-07] MEDS: SODIUM CHLORIDE FLUSH SYRINGE 10 ML IV SCH ×2 (10:13→20:59)
--- NOTE | 2018-08-07 11:55 | Progress Note ---
Assessment and Plan Assessment and plan: -- Hypoglycemia; resolved Patient's hemoglobin A1c is < 6 hold all the diabetes medicines continue D10 Accu-Cheks, D50 as needed, hold all the oral hypoglycemics and insulin Check A1c, diabetic education when patient is stable --Metabolic encephalopathy; due to hypoglycemia Significantly improved, alert awake oriented 3 confused at times --Type 2 diabetes mellitus; patient's blood sugars were in the lower range Hold all the diabetic medications and --Hypertension; moderate control, resume home antihypertensives and when necessary medications --Chronic mild systolic congestive heart failure; Ejection fraction 45-50%, continue current management --Dyslipidemia; continue statin --Acute kidney injury; secondary to ATN Gentle hydration, avoid nephrotoxins Nephrology evaluation if no improvement --Dementia; supportive care --History of schizophrenia; continue current psych medications Psych evaluation if needed --DVT prophylaxis; Lovenox --Full CODE STATUS Closely monitor the patient and adjust the management as needed Plan of care reviewed with the patient and her nurse History Interval history: Patient seen and examined medical records reviewed Patient feels better legally blind Poor oral intake The sugars reasonable level Hospitalist Physical - Constitutional Vitals: Temp Pulse Resp BP Pulse Ox 98.1 F 63 18 140/58 98 08/07/18 11:44 08/07/18 11:44 08/07/18 11:44 08/07/18 11:44 08/07/18 11:44 General appearance: Present: no acute distress, well-nourished, other (confused) - EENT Eyes: Present: PERRL, EOM intact - Neck Neck: Present: supple, normal ROM - Respiratory Respiratory effort: normal Respiratory: bilateral: diminished, negative: rales, rhonchi, wheezing - Cardiovascular Rhythm: regular Heart Sounds: Present: S1 & S2 - Extremities Extremities: no ischemia, No edema - Abdominal General gastrointestinal: soft, non-tender, non-distended, normal bowel sounds - Integumentary Integumentary: Present: clear, warm - Psychiatric Psychiatric: appropriate mood/affect, cooperative - Neurologic Neurologic: CNII-XII intact, moves all extremities Results - Labs CBC & Chem 7: 08/06/18 04:44 08/07/18 04:40 Labs: Laboratory Last Values WBC 4.2 K/mm3 (4.5-11.0) L 08/06/18 04:44 RBC 3.52 M/mm3 (3.65-5.03) L 08/06/18 04:44 Hgb 10.0 gm/dl (10.1-14.3) L 08/06/18 04:44 Hct 31.2 % (30.3-42.9) 08/06/18 04:44 MCV 89 fl (79-97) 08/06/18 04:44 MCH 29 pg (28-32) 08/06/18 04:44 MCHC 32 % (30-34) 08/06/18 04:44 RDW 13.2 % (13.2-15.2) 08/06/18 04:44 Plt Count 181 K/mm3 (140-440) 08/06/18 04:44 Lymph % (Auto) 8.8 % (13.4-35.0) L 08/04/18 17:27 [place] % (Auto) Salvage Supervisor 08/06/18 04:44 Eos % (Auto) 0.9 % (0.0-4.3) 08/04/18 17:27 Baso % (Auto) 0.4 % (0.0-1.8) 08/04/18 17:27 Lymph # 0.7 K/mm3 (1.2-5.4) L 08/04/18 17:27 [place] # 0.6 K/mm3 (0.0-0.8) 08/04/18 17:27 Eos # 0.1 K/mm3 (0.0-0.4) 08/04/18 17:27 Baso # 0.0 K/mm3 (0.0-0.1) 08/04/18 17:27 Add Manual Diff Complete 08/06/18 04:44 Total Counted 100 08/06/18 04:44 Seg Neutrophils % 82.0 % (40.0-70.0) H 08/04/18 17:27 Seg Neuts % (Manual) 57.0 % (40.0-70.0) 08/06/18 04:44 Band Neutrophils % 0 % 08/06/18 04:44 Lymphocytes % (Manual) 32.0 % (13.4-35.0) 08/06/18 04:44 Reactive Lymphs % (Man) 0 % 08/06/18 04:44 Monocytes % (Manual) 4.0 % (0.0-7.3) 08/06/18 04:44 Eosinophils % (Manual) 7.0 % (0.0-4.3) H 08/06/18 04:44 Basophils % (Manual) 0 % (0.0-1.8) 08/06/18 04:44 Metamyelocytes % 0 % 08/06/18 04:44 Myelocytes % 0 % 08/06/18 04:44 Promyelocytes % 0 % 08/06/18 04:44 Blast Cells % 0 % 08/06/18 04:44 Nucleated RBC % Not Reportable 08/06/18 04:44 Seg Neutrophils # 6.6 K/mm3 (1.8-7.7) 08/04/18 17:27 Seg Neutrophils # Man 2.4 K/mm3 (1.8-7.7) 08/06/18 04:44 Band Neutrophils # 0.0 K/mm3 08/06/18 04:44 Lymphocytes # (Manual) 1.3 K/mm3 (1.2-5.4) 08/06/18 04:44 Abs React Lymphs (Man) 0.0 K/mm3 08/06/18 04:44 Monocytes # (Manual) 0.2 K/mm3 (0.0-0.8) 08/06/18 04:44 Eosinophils # (Manual) 0.3 K/mm3 (0.0-0.4) 08/06/18 04:44 Basophils # (Manual) 0.0 K/mm3 (0.0-0.1) 08/06/18 04:44 Metamyelocytes # 0.0 K/mm3 08/06/18 04:44 Myelocytes # 0.0 K/mm3 08/06/18 04:44 Promyelocytes # 0.0 K/mm3 08/06/18 04:44 Blast Cells # 0.0 K/mm3 08/06/18 04:44 WBC Morphology Not Reportable 08/06/18 04:44 Hypersegmented Neuts Not Reportable 08/06/18 04:44 Hyposegmented Neuts Not Reportable 08/06/18 04:44 Hypogranular Neuts Not Reportable 08/06/18 04:44 Smudge Cells Not Reportable 08/06/18 04:44 Toxic Granulation Not Reportable 08/06/18 04:44 Toxic Vacuolation Not Reportable 08/06/18 04:44 Dohle Bodies Not Reportable 08/06/18 04:44 Pelger-Huet Anomaly Not Reportable 08/06/18 04:44 Angel Luis Rods Not Reportable 08/06/18 04:44 Platelet Estimate Consistent w auto 08/06/18 04:44 Clumped Platelets Not Reportable 08/06/18 04:44 Plt Clumps, EDTA Not Reportable 08/06/18 04:44 Large Platelets Not Reportable 08/06/18 04:44 Giant Platelets Not Reportable 08/06/18 04:44 Platelet Satelliting Not Reportable 08/06/18 04:44 Plt Morphology Comment Not Reportable 08/06/18 04:44 RBC Morphology Not Reportable 08/06/18 04:44 Dimorphic RBCs Not Reportable 08/06/18 04:44 Polychromasia Not Reportable 08/06/18 04:44 Hypochromasia 1+ 08/06/18 04:44 Poikilocytosis Not Reportable 08/06/18 04:44 Anisocytosis Not Reportable 08/06/18 04:44 Microcytosis Not Reportable 08/06/18 04:44 Macrocytosis Not Reportable 08/06/18 04:44 Spherocytes Not Reportable 08/06/18 04:44 Pappenheimer Bodies Not Reportable 08/06/18 04:44 Sickle Cells Not Reportable 08/06/18 04:44 Target Cells Not Reportable 08/06/18 04:44 Tear Drop Cells Not Reportable 08/06/18 04:44 Ovalocytes Not Reportable 08/06/18 04:44 Helmet Cells Not Reportable 08/06/18 04:44 Cline-[place] Bodies Not Reportable 08/06/18 04:44 [place] Rings Not Reportable 08/06/18 04:44 [place] Cells Not Reportable 08/06/18 04:44 Bite Cells Not Reportable 08/06/18 04:44 Crenated Cell Not Reportable 08/06/18 04:44 Elliptocytes Not Reportable 08/06/18 04:44 Acanthocytes (Spur) Not Reportable 08/06/18 04:44 Rouleaux Not Reportable 08/06/18 04:44 Hemoglobin C Crystals Not Reportable 08/06/18 04:44 Schistocytes Not Reportable 08/06/18 04:44 Malaria parasites Not Reportable 08/06/18 04:44 Jorje Bodies Not Reportable 08/06/18 04:44 Hem Pathologist Commnt No 08/06/18 04:44 VBG pH 7.275 (7.320-7.420) L 08/04/18 17:27 Sodium 139 mmol/L (137-145) 08/07/18 04:40 Potassium 4.8 mmol/L (3.6-5.0) 08/07/18 04:40 Chloride 104.6 mmol/L (98-107) 08/07/18 04:40 Carbon Dioxide 23 mmol/L (22-30) 08/07/18 04:40 Anion Gap 16 mmol/L 08/07/18 04:40 BUN 32 mg/dL (7-17) H 08/07/18 04:40 Creatinine 1.9 mg/dL (0.7-1.2) H 08/07/18 04:40 Estimated GFR 32 ml/min 08/07/18 04:40 BUN/Creatinine Ratio 17 % 08/07/18 04:40 Glucose 142 mg/dL (65-100) H 08/07/18 04:40 POC Glucose 136 (70-105) H 08/07/18 08:34 Hemoglobin A1c 5.7 % (4-6) 08/06/18 04:44 Calcium 8.3 mg/dL (8.4-10.2) L 08/07/18 04:40 Phosphorus 3.00 mg/dL (2.5-4.5) 08/06/18 04:44 Magnesium 2.10 mg/dL (1.7-2.3) 08/07/18 04:40 Total Bilirubin 0.30 mg/dL (0.1-1.2) 08/04/18 17:27 AST 13 units/L (5-40) 08/04/18 17:27 ALT 8 units/L (7-56) 08/04/18 17:27 Alkaline Phosphatase 60 units/L (35-129) 08/04/18 17:27 Total Protein 6.6 g/dL (6.3-8.2) 08/04/18 17:27 Albumin 3.7 g/dL (3.9-5) L 08/04/18 17:27 Albumin/Globulin Ratio 1.3 % 08/04/18 17:27 TSH 1.100 mlU/mL (0.270-4.200) 08/04/18 17:27 Active Medications - Current Medications Current Medications: Generic Name Dose Route Start Last Admin Trade Name Freq PRN Reason Stop Dose Admin Acetaminophen 650 mg 08/05/18 00:18 Tylenol PO Q4H PRN Pain MILD(1-3)/Fever >100.5/MORA Acetaminophen/Butalbital/Caffeine 1 tab 08/05/18 19:11 Fioricet PO DAILY PRN Headache Aspirin 81 mg 08/06/18 10:00 08/07/18 09:21 Baby Aspirin PO 81 mg DAILY AMA Administration Benztropine Mesylate 1 mg 08/05/18 22:00 08/07/18 09:21 Cogentin PO 1 mg BID AMA Administration Brimonidine/Timolol 1 drops 08/05/18 22:00 08/07/18 09:22 Combigan 0.2-0.5% OU 1 drops Q12HR AMA Administration Carvedilol 6.25 mg 08/05/18 22:00 08/07/18 09:24 Coreg PO 6.25 mg BID AMA Administration Dextrose 50 ml 08/05/18 19:14 D50w (25gm) Syringe IV PRN PRN Hypoglycemia Enoxaparin Sodium 30 mg 08/06/18 10:00 08/07/18 09:19 Lovenox SUB-Q 30 mg QDAY AMA Administration Hydralazine HCl 25 mg 08/06/18 14:00 08/07/18 06:11 Apresoline PO 25 mg Q8HR AMA Administration Hydralazine HCl 10 mg 08/06/18 11:23 Apresoline IV Q4HR PRN HTN BP>155/90 Dextrose 1,000 mls @ 100 mls/hr 08/05/18 00:00 08/07/18 06:20 D10w IV 100 mls/hr DIRECT AMA Administration Insulin Human Lispro 0 unit 08/05/18 22:00 08/07/18 08:27 Humalog SUB-Q Not Given ACHS [facility] Protocol Miscellaneous Medication 1 drops 08/05/18 20:00 08/06/18 21:54 Brinzolamide [Azopt 1%] OU Not Given TID MAA Ondansetron HCl 4 mg 08/05/18 00:18 Zofran IV Q8H PRN Nausea And Vomiting Risperidone 1 mg 08/05/18 22:00 08/06/18 21:46 Risperdal PO 1 mg BID AMA Administration Risperidone 3 mg 08/05/18 22:00 08/07/18 09:21 Risperdal PO 3 mg BID AMA Administration Sodium Chloride 10 ml 08/05/18 10:00 08/07/18 10:13 Sodium Chloride Flush Syringe 10 Ml IV Not Given BID AMA Sodium Chloride 10 ml 08/05/18 00:18 Sodium Chloride Flush Syringe 10 Ml IV PRN PRN LINE FLUSH
[2018-08-07] MEDS: NACL 0.9% 1000 ML 1,000 ML IV SCH (15:54)
[2018-08-08] MEDS: NACL 0.9% 1000 ML 1,000 ML IV SCH (00:18)
[2018-08-08] MEDS: APRESOLINE PO SCH ×3 (04:42→15:54)
[2018-08-08] MEDS: HumaLOG SUB-Q SCH ×3 (08:00→17:30)
[2018-08-08] MEDS: LOVENOX SUB-Q SCH (10:02)
[2018-08-08] MEDS: BABY ASPIRIN PO SCH (10:02)
[2018-08-08] MEDS: RisperDAL PO SCH ×2 (10:02→10:03)
[2018-08-08] MEDS: COREG PO SCH (10:04)
[2018-08-08] MEDS: SODIUM CHLORIDE FLUSH SYRINGE 10 ML IV SCH (10:04)
[2018-08-08] MEDS: COMBIGAN 0.2-0.5% OU SCH (10:05)
[2018-08-08] MEDS: COGENTIN PO SCH (10:09)
--- NOTE | 2018-08-08 12:51 | Discharge Summary ---
Providers - Providers Date of Admission: 08/05/18 00:40 Date of discharge: 08/08/18 Attending physician: THIERRY CHACON 08/06/18 18:28 Physical Therapy Evaluation and Treat [CONS] Routine Comment: Reason For Exam: generalized weakness/encephalopathy Hospitalization Reason for admission: Hypoglycemia,Altered level of consciousness Condition: Serious Hospital course: 62-year-old female patient was admitted with hypoglycemia and unresponsive at the [facility] . Her blood sugar was reported to be in the low 20, she was given an amp of D50 which increased he blood glucose to 127. In the ER, pt states that she had skipped her lunch today because she fell asleep, she complains of some diarrhea that has been going on for 1 week, admitted and managed symptomatically,all diabetic meds were held.Blood sugar levels are reasonable.Advised to hold oral antihypertensives Today patient is comfortable,no new complaints. Vital signs stable.Physical exam is unremarkable Discharge Diagnosis: -- Hypoglycemia; resolved Patient's hemoglobin A1c is < 6 hold all the diabetes medicines continue D10 Accu-Cheks, D50 as needed, hold all the oral hypoglycemics and insulin diabetic education when patient is stable --Metabolic encephalopathy; due to hypoglycemia Significantly improved, alert awake oriented 3 confused at times --Type 2 diabetes mellitus; patient's blood sugars were in the lower range Hold all the diabetic medications and --Hypertension; moderate control, resume home antihypertensives and when necessary medications --Chronic mild systolic congestive heart failure; Ejection fraction 45-50%, continue current management --Dyslipidemia; continue statin --Acute kidney injury; secondary to ATN Gentle hydration, avoid nephrotoxins Nephrology evaluation if no improvement --Dementia; supportive care --History of schizophrenia; continue current psych medications Psych evaluation if needed --DVT prophylaxis; Lovenox --Full CODE STATUS Closely monitor the patient and adjust the management as needed Plan of care reviewed with the patient and her nurse Disposition: [id number] HOME UNDER HOME [facility] Time spent for discharge: 32 min Core Measure Documentation - Palliative Care Palliative Care/ Comfort Measures: Not Applicable - Core Measures Any of the following diagnoses?: none Exam - Constitutional Vitals: Temp Pulse Resp BP Pulse Ox 98.6 F 76 18 140/78 97 08/08/18 08:51 08/08/18 10:04 08/08/18 10:00 08/08/18 10:04 08/08/18 08:51 General appearance: Present: no acute distress, well-nourished - EENT Eyes: Present: PERRL, EOM intact - Neck Neck: Present: supple, normal ROM - Respiratory Respiratory effort: normal Respiratory: bilateral: diminished, negative: rales, rhonchi, wheezing - Cardiovascular Rhythm: regular Heart Sounds: Present: S1 & S2 - Extremities Extremities: no ischemia, No edema - Abdominal General gastrointestinal: Present: soft, non-tender, non-distended, normal bowel sounds - Integumentary Integumentary: Present: clear, warm - Musculoskeletal Musculoskeletal: strength equal bilaterally - Psychiatric Psychiatric: appropriate mood/affect, cooperative - Neurologic Neurologic: moves all extremities, other Plan Activity: advance as tolerated, fall precautions Diet: regular Additional Instructions: Does not take diabetes medications [her blood sugars are low and normal range]. Checked with primary care physician in 2 weeks advised regarding diabetes medications. Fall precautions. Fall Precautions Follow up with: DELICIA PURI [Other] - 3-5 Days Prescriptions: hydrALAZINE [Apresoline TAB] 25 mg PO BID #60 tablet
[2018-08-08 15:55] VITALS: BP 142/70
== END 2018-08-08 17:55 | disposition home health service (06) | DRG 637 ==
LOC: EDBD → ED 15:42 → 4A 08-05 00:40
PROVIDERS: ADMIT Internal Medicine; ATTEND Internal Medicine
DX: E11.649 Type 2 diabetes mellitus with hypoglycemia without coma (principal); G93.41 Metabolic encephalopathy; N17.0 Acute kidney failure with tubular necrosis; I50.22 Chronic systolic (congestive) heart failure; J44.9 Chronic obstructive pulmonary disease, unspecified; F03.90 Unspecified dementia, unspecified severity, without behavioral disturbance, psychotic disturbance, mood disturbance, and anxiety; I11.0 Hypertensive heart disease with heart failure; F41.9 Anxiety disorder, unspecified; E11.319 Type 2 diabetes mellitus with unspecified diabetic retinopathy without macular edema; N18.9 Chronic kidney disease, unspecified; E11.22 Type 2 diabetes mellitus with diabetic chronic kidney disease; F20.9 Schizophrenia, unspecified; I12.9 Hypertensive chronic kidney disease with stage 1 through stage 4 chronic kidney disease, or unspecified chronic kidney disease; Z88.8 Allergy status to other drugs, medicaments and biological substances; Z79.51 Long term (current) use of inhaled steroids; Z79.899 Other long term (current) drug therapy; Z79.4 Long term (current) use of insulin
CPT/HCPCS: 36415; 80048; 80053; 82805; 82962; 83036; 83735; 84100; 84443; 85007; 85025; 93005; 93010; 96374; 99291; G0378; J0360; J1650; J3246; J7030; J7042

== ENCOUNTER 2018-09-15 14:01 | Inpatient (IN) | payer MEDICAID ==
[2018-09-15] MEDS ORDERED: ASPIRIN PO ONE (14:31)
--- NOTE | 2018-09-15 14:34 | Emergency Department Report ---
Blank Doc - Documentation Documentation: This is a 62-year-old female that presents with chest pain and headache. Stated she bumped her head against the door. Denies LOC. Exam: neuro exam normal. No facial drooping. No one sided weakness. This initial assessment/diagnostic orders/clinical plan/treatment(s) is/are subject to change based on patient's health status, clinical progression and re- assessment by fellow clinical providers in the ED. Further treatment and workup at subsequent clinical providers discretion. Patient/guardians urged not to elope from the ED as their condition may be serious if not clinically assessed and managed. Initial orders include: 1- Patient sent to MAIN ED for further evaluation and treatment 2- ekg 3- labs 4- cxr/ct head
[2018-09-15 15:35] LABS: Basophils % (Auto) 0.8 % (0.0-1.8); Eosinophils # (Auto) 0.3 K/mm3 (0.0-0.4); Eosinophils % (Auto) 6.2 % (0.0-4.3); Hematocrit 34.3 % (30.3-42.9); Hemoglobin 10.7 gm/dl (10.1-14.3); Lymphocytes # (Auto) 1.5 K/mm3 (1.2-5.4); Lymphocytes % (Auto) 27.1 % (13.4-35.0); Mean Corpuscular HGB Conc 31 % (30-34); Mean Corpuscular Volume 92 fl (79-97); Monocytes # (Auto) 0.6 K/mm3 (0.0-0.8); Monocytes % (Auto) 11.6 % (0.0-7.3); Platelet Count 180 K/mm3 (140-440); Red Blood Count 3.74 M/mm3 (3.65-5.03); Red Cell Distribution Width 14.4 % (13.2-15.2)
--- NOTE | 2018-09-15 15:35 | Cat Scan Report ---
CT HEAD WITHOUT CONTRAST: HISTORY: Headache. TECHNIQUE: Sequential 2.5mm CT images. COMPARISON: none. FINDINGS: Cerebral Parenchyma: Mild diffuse cortical volume loss is evident. Otherwise, the brain parenchyma attenuation in its aguiar-white interface are within normal limits. Cerebellum: Within normal limits. Brainstem: Within normal limits. Ventricles: Normal. Sella: Normal. Extra-axial spaces: Normal. Basal Cisterns: Normal. Intracranial Hemorrhage: None. Midline Shift: None. Calvarium: Normal. Sinuses: Normal. Mastoid Air Cells: Normal. Visualized Orbits: Normal. IMPRESSION: Mild diffuse cortical volume loss. No acute intracranial process.
[2018-09-15 15:54] LABS: BUN/Creatinine Ratio 22; Blood Urea Nitrogen 50 mg/dL (7-17); Calcium 8.4 mg/dL (8.4-10.2); Hemolysis Index 4
[2018-09-15 15:58] LABS: INR 1.01 (0.87-1.13); Partial Thromboplastin Time 31.8 Sec. (24.2-36.6)
--- NOTE | 2018-09-15 16:43 | XRay Report ---
PROCEDURE: Chest. TECHNIQUE: PA view. HISTORY: Chest pain. COMPARISONS: None. FINDINGS: The heart and mediastinum appear normal. The lungs are clear and well expanded. There are no pleural effusions. The soft tissues and regional skeleton are unremarkable. IMPRESSION: No evidence of acute disease. This document is electronically signed by Bronson Mccann MD., Sep 15 2018 04:41:26 PM ET
--- NOTE | 2018-09-15 18:20 | Emergency Department Report ---
ED Chest Pain HPI - General Chief Complaint: Headache Stated Complaint: CHEST PAIN/HEADACHE Time Seen by Provider: 09/15/18 14:32 Source: patient Mode of arrival: Ambulatory Limitations: No Limitations - History of Present Illness Initial Comments: [id number]-year-old female with a past medical history of hypertension, diabetes, chronic mild CHF with EF of 45-50%, dyslipidemia, chronic renal insufficiency, dementia, and schizophrenia presents to the hospital complaints of chest pain and headache. Patient was sent of her PMDs office for evaluation due to these complaints. Complaint #1: Chest pain History of intermittent left-sided chest soreness one week. Risks with movement and lying on the left side. Patient denies associated shortness of breath. Occasional nausea without vomiting reported. No episodes of diaphoresis. Last stress test on record was from April 2015. Negative at that time. Complaint #2: Headache. Patient complains of global headache for the last 2 weeks. No aggravating or relieving factors. Nausea without vomiting. No focal weakness or numbness. She did bump the left side of her head today. No LOC reported. Headache started prior to this injury. - Related Data Home Medications Medication Instructions Recorded Confirmed Last Taken Fluorometholone [Fml Forte 0.25% 1 drops OU TID 09/19/13 04/13/15 Unknown eye drops] Ranitidine HCl [Zantac] 150 mg PO DAILY 09/19/13 04/13/15 Unknown Simvastatin (Nf) [Zocor TAB] 40 mg PO DAILY 09/19/13 04/13/15 Unknown Travoprost [Travatan Z 0.004%] 1 drop OU DAILY 09/19/13 04/13/15 Unknown Aspirin [Aspirin BABY CHEW TAB] 81 mg PO DAILY 04/13/15 04/13/15 Unknown Docusate Sodium [Colace CAP] 100 mg PO TID 04/13/15 04/13/15 Unknown Polyethylene Glycol 3350 [Miralax 17 gm PO DAILY 04/13/15 04/13/15 Unknown 3350] Previous Rx's Medication Instructions Recorded Last Taken Type Acetaminophen [Acetaminophen TAB] 650 mg PO Q6H PRN tablet 04/19/15 Unknown Rx Benztropine [Cogentin] 1 mg PO BID #60 tablet 04/19/15 Unknown Rx Brimonidine/Timolol 0.2-0.5% 1 drops OU Q12HR #1 bottle 12/15/15 Unknown Rx [Combigan 0.2-0.5%] Brinzolamide [Azopt 1%] 1 drops OU TID #90 drops.susp 04/19/15 Unknown Rx Butalb/Acetamin/Caff 50-325-40 50 mg PO DAILY PRN #30 tablet 04/19/15 Unknown Rx [Fioricet] Carvedilol [Coreg] 6.25 mg PO BID #60 tablet 04/19/15 Unknown Rx Lurasidone HCl [Latuda] 120 mg PO QDAY #30 tablet 04/19/15 Unknown Rx Ondansetron [Zofran TAB] 4 mg PO DAILY PRN #30 tablet 04/19/15 Unknown Rx Sertraline [Zoloft] 25 mg PO DAILY #30 tablet 04/19/15 Unknown Rx guaiFENesin DM [Robitussin Dm] 10 ml PO Q6H PRN #1 oral.liqd 04/19/15 Unknown Rx risperiDONE [RisperiDONE] 4 mg PO BID #60 tab.rapdis 04/19/15 Unknown Rx Dextrose 50% in Water [D50W (25GM) 50 ml IV PRN PRN syringe 08/08/18 Unknown Rx Syringe] hydrALAZINE [Apresoline TAB] 25 mg PO BID #60 tablet 08/08/18 Unknown Rx Allergies Allergy/AdvReac Type Severity Reaction Status Date / Time citric acid Allergy Unknown Verified 09/16/13 12:34 haloperidol [From Haldol] Allergy Unknown Verified 09/16/13 12:34 haloperidol lactate Allergy Unknown Verified 09/16/13 12:34 [From Haldol] Heart Score - HEART Score History: Slightly suspicious EKG: Non-specific Age: 45-65 Risk factors: > 3 risk factors or hx of atherosclerotic disease Troponin: < normal limit HEART Score: 4 ED Review of Systems ROS: Stated complaint: CHEST PAIN/HEADACHE Other details as noted in HPI Comment: All other systems reviewed and negative Eyes: other (legally blind) ED Past Medical Hx - Past Medical History Hx Hypertension: Yes Hx Congestive Heart Failure: Yes Hx Diabetes: Yes Hx Arthritis: Yes Hx Psychiatric Treatment: Yes (schizophrenia,bipolar,depression,anxiety) Hx Asthma: No Hx COPD: Yes Hx Dementia: Yes (early onset) Additional medical history: diabetic retinopathy - Surgical History Past Surgical History?: Yes Additional Surgical History: eye surgery - Social History Smoking Status: Never Smoker Substance Use Type: None - Medications Home Medications: Home Medications Medication Instructions Recorded Confirmed Last Taken Type Fluorometholone [Fml Forte 0.25% 1 drops OU TID 09/19/13 04/13/15 Unknown Hist ory eye drops] Ranitidine HCl [Zantac] 150 mg PO DAILY 09/19/13 04/13/15 Unknown History Simvastatin (Nf) [Zocor TAB] 40 mg PO DAILY 09/19/13 04/13/15 Unknown History Travoprost [Travatan Z 0.004%] 1 drop OU DAILY 09/19/13 04/13/15 Unknown History Aspirin [Aspirin BABY CHEW TAB] 81 mg PO DAILY 04/13/15 04/13/15 Unknown History Docusate Sodium [Colace CAP] 100 mg PO TID 04/13/15 04/13/15 Unknown History Polyethylene Glycol 3350 [Miralax 17 gm PO DAILY 04/13/15 04/13/15 Unknown H istory 3350] Acetaminophen [Acetaminophen TAB] 650 mg PO Q6H PRN tablet 04/19/15 Unknown Rx Benztropine [Cogentin] 1 mg PO BID #60 tablet 04/19/15 Unknown Rx Brimonidine/Timolol 0.2-0.5% 1 drops OU Q12HR #1 bottle 04/19/15 Unknown Rx [Combigan 0.2-0.5%] Brinzolamide [Azopt 1%] 1 drops OU TID #90 drops.susp 04/19/15 Unknown Rx Butalb/Acetamin/Caff 50-325-40 50 mg PO DAILY PRN #30 tablet 04/19/15 Unknown Rx [Fioricet] Carvedilol [Coreg] 6.25 mg PO BID #60 tablet 04/19/15 Unknown Rx Lurasidone HCl [Latuda] 120 mg PO QDAY #30 tablet 04/19/15 Unknown Rx Ondansetron [Zofran TAB] 4 mg PO DAILY PRN #30 tablet 04/19/15 Unknown Rx Sertraline [Zoloft] 25 mg PO DAILY #30 tablet 04/19/15 Unknown Rx guaiFENesin DM [Robitussin Dm] 10 ml PO Q6H PRN #1 oral.liqd 12/15/15 Unknown Rx risperiDONE [RisperiDONE] 4 mg PO BID #60 tab.rapdis 04/19/15 Unknown Rx Dextrose 50% in Water [D50W (25GM) 50 ml IV PRN PRN syringe 08/08/18 Unknown Rx Syringe] hydrALAZINE [Apresoline TAB] 25 mg PO BID #60 tablet 08/08/18 Unknown Rx ED Physical Exam - General Limitations: No Limitations - Other Other exam information: General: No limitations, patient is alert in no acute distress Head exam: Atraumatic, normocephalic Eyes exam: Patient is legally blind ENT: Moist mucous membrane, normal oropharynx Neck exam: Normal inspection, full range of motion, no meningismus nontender Respiratory exam: Clear to auscultation bilateral, no wheezes, rales, crackles Cardiovascular: Normal rate and rhythm, no chest wall tenderness Abdomen: Soft, nondistended, and nontender, with normal bowel sounds, no rebound, or guarding Extremity: Full range of motion normal inspection no deformity Back: Normal Inspection, full range of motion, no tenderness Neurologic: Alert, cranial nerves intact, no motor or sensory deficit Psychiatric: normal affect, normal mood Skin: Warm, dry, intact ED Course Vital Signs 09/15/18 09/15/18 09/15/18 14:28 18:06 18:08 Temperature 97.7 F 98.6 F Pulse Rate 56 L 59 L 58 L Respiratory 18 16 16 Rate Blood Pressure 210/69 Blood Pressure 226/83 [Right] O2 Sat by Pulse 100 100 98 Oximetry 09/15/18 09/15/18 09/15/18 18:10 18:20 18:30 Temperature Pulse Rate 57 L 57 L 60 Respiratory 12 16 15 Rate Blood Pressure 226/83 226/83 226/93 Blood Pressure [Right] O2 Sat by Pulse 100 99 100 Oximetry 09/15/18 09/15/18 09/15/18 18:40 18:50 19:00 Temperature Pulse Rate 62 60 61 Respiratory 20 13 17 Rate Blood Pressure 226/93 226/93 226/93 Blood Pressure [Right] O2 Sat by Pulse 100 99 100 Oximetry 09/15/18 09/15/18 09/15/18 19:10 19:21 19:31 Temperature Pulse Rate 67 61 65 Respiratory 16 20 17 Rate Blood Pressure 226/83 226/93 226/93 Blood Pressure [Right] O2 Sat by Pulse 99 99 99 Oximetry 09/15/18 09/15/18 09/15/18 19:41 19:45 19:46 Temperature 97.9 F Pulse Rate 62 65 65 Respiratory 19 17 Rate Blood Pressure 226/93 205/88 Blood Pressure 205/80 [Right] O2 Sat by Pulse 100 100 Oximetry 09/15/18 09/15/18 09/15/18 19:51 20:00 20:11 Temperature Pulse Rate 66 68 66 Respiratory 21 16 14 Rate Blood Pressure 226/93 192/66 205/80 Blood Pressure [Right] O2 Sat by Pulse 100 100 100 Oximetry 09/15/18 20:21 Temperature Pulse Rate 66 Respiratory 20 Rate Blood Pressure 205/80 Blood Pressure [Right] O2 Sat by Pulse 100 Oximetry ED Medical Decision Making - Lab Data Result diagrams: 09/15/18 23:23 09/15/18 15:19 - EKG Data -: EKG Interpreted by Ia EKG shows normal: sinus rhythm, axis (qrs -1), QRS complexes (qrsd 91), ST-T waves (no stem/t inv) Rate: normal (63) - EKG Data When compared to previous EKG there are: no significant change 09/15/18 18:22 repeat ekg without acute changes - Radiology Data Radiology results: report reviewed CT HEAD WITHOUT CONTRAST: HISTORY: Headache. TECHNIQUE: Sequential 2.5mm CT images. COMPARISON: none. FINDINGS: Cerebral Parenchyma: Mild diffuse cortical volume loss is evident. Otherwise, the brain parenchyma attenuation in its aguiar-white interface are within normal limits. Cerebellum: Within normal limits. Brainstem: Within normal limits. Ventricles: Normal. Sella: Normal. Extra-axial spaces: Normal. Basal Cisterns: Normal. Intracranial Hemorrhage: None. Midline Shift: None. Calvarium: Normal. Sinuses: Normal. Mastoid Air Cells: Normal. Visualized Orbits: Normal. IMPRESSION: Mild diffuse cortical volume loss. No acute intracranial process. PROCEDURE: Chest. TECHNIQUE: PA view. HISTORY: Chest pain. COMPARISONS: None. FINDINGS: The heart and mediastinum appear normal. The lungs are clear and well expanded. There are no pleural effusions. The soft tissues and regional skeleton are unremarkable. IMPRESSION: No evidence of acute disease. - Medical Decision Making Case was discussed with her primary care doctor. Patient will be admitted to the hospital for further cardiac workup and possible repeat stress test. Aspirin provided in the ED. Patient declined pain medication. Nitroglycerin place for elevated blood pressure and chest pain. - Differential Diagnosis atypical chest pain, MT, unstable angina, MSK pain, ICH Critical Care Time: No Critical care attestation.: If time is entered above; I have spent that time in minutes in the direct care of this critically ill patient, excluding procedure time. ED Disposition Clinical Impression: Chest pain, Diabetes mellitus, CRI (chronic renal insufficiency), Headache Disposition: 09 OP ADMIT IP TO THIS HOSP Is pt being admited?: Yes Does the pt Need Aspirin: Yes Condition: Stable Time of Disposition: 18:23 (Dr Shaver)
[2018-09-15] MEDS ORDERED: NITRO-BID 2% TP ONE ×2 (18:33→19:44)
[2018-09-15] MEDS ORDERED: MORPHINE IV PRN (22:40)
[2018-09-15] MEDS ORDERED: SODIUM CHLORIDE FLUSH SYRINGE 10 ML IV PRN (22:40)
[2018-09-15] MEDS ORDERED: D50W (25GM) Syringe IV PRN (22:47)
[2018-09-15] MEDS ORDERED: TYLENOL PO PRN (22:47)
[2018-09-15] MEDS ORDERED: FIORICET PO PRN (22:47)
--- NOTE | 2018-09-15 22:56 | History and Physical Report ---
History of Present Illness Date of examination: 09/15/18 Date of admission: 09/15/18 18:26 Chief complaint: chest pain History of present illness: Patient is a 62-year-old lady who resides in the past not now a history of hypertension, mild chronic heart failure with ejection fraction of 45-50%, schizophrenia with dementia, chronic renal failure, hyperlipidemia presented to my office today in company of her systemic complaint on this chest pain and headache. Onset was about a month ago per patient history is not reliable given her dementia and schizophrenia. However her sister who said the patient had indicated that she is full code to which patient consented while in my office. She was disposed to admission to the hospital and evaluation for chest pain. Better admission was therefore ordered. Initial set of cardiac enzymes were normal. Patient had elevated BUN and creatinine of 50 and 3.2. At baseline Creatinine was 1.7 as of July 2018. Head it was nonspecific. Denies any nausea vomiting. No loss of consciousness. Does not have any blured vision. Admission for further evaluation was ordered Past History Past Medical History: heart failure, hypertension, hyperlipidemia, renal failure, other (dementia with schizophrenia) Social history: denies: smoking, alcohol abuse, prescription drug abuse Family history: no significant family history Medications and Allergies Allergies Allergy/AdvReac Type Severity Reaction Status Date / Time citric acid Allergy Unknown Verified 09/16/13 12:34 haloperidol [From Haldol] Allergy Unknown Verified 09/16/13 12:34 haloperidol lactate Allergy Unknown Verified 09/16/13 12:34 [From Haldol] Home Medications Medication Instructions Recorded Confirmed Last Taken Type Fluorometholone [Fml Forte 0.25% 1 drops OU TID 09/19/13 04/13/15 Unknown History eye drops] Ranitidine HCl [Zantac] 150 mg PO DAILY 09/19/13 04/13/15 Unknown History Simvastatin (Nf) [Zocor TAB] 40 mg PO DAILY 09/19/13 04/13/15 Unknown History Travoprost [Travatan Z 0.004%] 1 drop OU DAILY 09/19/13 04/13/15 Unknown History Aspirin [Aspirin BABY CHEW TAB] 81 mg PO DAILY 04/13/15 04/13/15 Unknown History Docusate Sodium [Colace CAP] 100 mg PO TID 04/13/15 04/13/15 Unknown History Polyethylene Glycol 3350 [Miralax 17 gm PO DAILY 04/13/15 04/13/15 Unknown History 3350] Acetaminophen [Acetaminophen TAB] 650 mg PO Q6H PRN tablet 04/19/15 Unknown Rx Benztropine [Cogentin] 1 mg PO BID #60 tablet 04/19/15 Unknown Rx Brimonidine/Timolol 0.2-0.5% 1 drops OU Q12HR #1 bottle 04/19/15 Unknown Rx [Combigan 0.2-0.5%] Brinzolamide [Azopt 1%] 1 drops OU TID #90 drops.susp 04/19/15 Unknown Rx Butalb/Acetamin/Caff 50-325-40 50 mg PO DAILY PRN #30 tablet 04/19/15 Unknown Rx [Fioricet] Carvedilol [Coreg] 6.25 mg PO BID #60 tablet 04/19/15 Unknown Rx Lurasidone HCl [Latuda] 120 mg PO QDAY #30 tablet 04/19/15 Unknown Rx Ondansetron [Zofran TAB] 4 mg PO DAILY PRN #30 tablet 04/19/15 Unknown Rx Sertraline [Zoloft] 25 mg PO DAILY #30 tablet 04/19/15 Unknown Rx guaiFENesin DM [Robitussin Dm] 10 ml PO Q6H PRN #1 oral.liqd 04/19/15 Unknown Rx risperiDONE [RisperiDONE] 4 mg PO BID #60 tab.rapdis 04/19/15 Unknown Rx Dextrose 50% in Water [D50W (25GM) 50 ml IV PRN PRN syringe 08/08/18 Unknown Rx Syringe] hydrALAZINE [Apresoline TAB] 25 mg PO BID #60 tablet 08/08/18 Unknown Rx Active Meds: Active Medications Aspirin (Ecotrin) 325 mg PO QDAY AMA Atorvastatin Calcium (Lipitor) 20 mg PO QHS AMA Benztropine Mesylate (Cogentin) 1 mg PO BID AMA Brimonidine/Timolol (Combigan 0.2-0.5%) 1 drops OU Q12HR AMA Hydralazine HCl (Apresoline) 10 mg IV Q6HR PRN PRN Reason: SBP >170 Sodium Chloride (Nacl 0.45% 1000 Ml) 1,000 mls @ 100 mls/hr IV DIRECT AMA Miscellaneous Medication (Brinzolamide [Azopt 1%]) 1 drops OU TID MAA Morphine Sulfate (Morphine) 2 mg IV Q5MIN PRN PRN Reason: Chest Pain unrelieved by NTG Sodium Chloride (Sodium Chloride Flush Syringe 10 Ml) 10 ml IV PRN PRN PRN Reason: LINE FLUSH Review of Systems ROS unobtainable: due to mental status (patient is presenting confused from dementia) Exam - Physical Exam Narrative exam: Constitutional: Well-nourished well-developed. Ambulates chronically with u nstable gait. In no distress Head: Normocephalic atraumatic Eyes: Pupils are equal round and reactive to light Nose: No enlarged turbinates, no septal deviation. Mouth: Moist mucous membranes. Neck: Supple no thyromegaly. No bruit. No JVD Heart: Regular rate and rhythm, S1-S2 normal. No rubs murmurs or gallop Lungs: Clear to auscultation bilaterally. no rales or rhonchi Abdomen: Soft, nontender. Bowel sound are present. Extremities: No edema, no cyanosis, no clubbing. Neuro: Alert oriented Oriented x1. No focal sensory or motor deficit. Skin: No rashes or hyperpigmented spots Musculoskeletal system: No joint pain or swelling. Unstable gait Hematological: No petechia or subcutanous hemorrhages. Immunological: No multiple septic spots on the skin Lymphatic: No generalized lymphadenopathy Psychiatry: Euthymic. Calm. - Constitutional Vitals: Temp Pulse Resp BP Pulse Ox 97.9 F 63 18 204/80 97 09/15/18 22:01 09/15/18 22:01 09/15/18 22:01 09/15/18 22:01 09/15/18 22:01 Results - Labs CBC & Chem 7: 09/16/18 05:21 09/16/18 05:21 Labs: Abnormal lab results 09/15/18 09/15/18 Range/Units 15:15 15:19 [place] % (Auto) 11.6 H (0.0-7.3) % Eos % (Auto) 6.2 H (0.0-4.3) % Chloride 108.1 H (98-107) mmol/L BUN 50 H (7-17) mg/dL Creatinine 2.3 H (0.7-1.2) mg/dL Glucose 137 H (65-100) mg/dL Assessment and Plan - Chest pain Serial CE, Oxygen,NTG, ASA, morphin - Acute on Chronic renal failure from prerenal azotemia BUN as of 09/02/2018 was 27 and a creatinine of 1.7 IV hydration We will trend -Schizophrenia with dementia Continue with present management - HTN Commence home meds and optimize paean meds - Prediabetic with A1c of 6.1% We will continue to trend. Has had episodes of hypoglycemia. We will continue to trend. We will Oral anti-glycemic agents. - DVT PPX with Lovenox
[2018-09-15] MEDS ORDERED: NACL 0.45% 1000 ML 1,000 ML IV SCH (23:00)
[2018-09-15] MEDS: APRESOLINE IV PRN (23:36)
[2018-09-15] MEDS: COREG PO SCH (23:37)
[2018-09-15] MEDS: APRESOLINE PO SCH (23:37)
[2018-09-15 23:44] LABS: Basophils # (Auto) 0.1 K/mm3 (0.0-0.1); Eosinophils # (Auto) 0.4 K/mm3 (0.0-0.4); Eosinophils % (Auto) 6.9 % (0.0-4.3); Hemoglobin 10.9 gm/dl (10.1-14.3); Lymphocytes # (Auto) 1.5 K/mm3 (1.2-5.4); Mean Corpuscular HGB Conc 32 % (30-34); Mean Corpuscular Volume 90 fl (79-97); Monocytes # (Auto) 0.5 K/mm3 (0.0-0.8); Monocytes % (Auto) 9.5 % (0.0-7.3); Platelet Count 182 K/mm3 (140-440); Red Blood Count 3.79 M/mm3 (3.65-5.03); Red Cell Distribution Width 13.8 % (13.2-15.2)
[2018-09-16 01:13] LABS: Calcium 8.5 mg/dL (8.4-10.2); Chol/HDL Ratio 3.07 %
[2018-09-16 06:30] LABS: Basophils % (Auto) 0.9 % (0.0-1.8); Eosinophils # (Auto) 0.3 K/mm3 (0.0-0.4); Eosinophils % (Auto) 7.3 % (0.0-4.3); Hematocrit 32.3 % (30.3-42.9); Hemoglobin 10.5 gm/dl (10.1-14.3); Lymphocytes # (Auto) 1.5 K/mm3 (1.2-5.4); Lymphocytes % (Auto) 33.7 % (13.4-35.0); Mean Corpuscular HGB Conc 33 % (30-34); Mean Corpuscular Volume 89 fl (79-97); Monocytes # (Auto) 0.5 K/mm3 (0.0-0.8); Platelet Count 179 K/mm3 (140-440); Red Blood Count 3.62 M/mm3 (3.65-5.03); Red Cell Distribution Width 13.9 % (13.2-15.2)
[2018-09-16 07:01] LABS: Alanine Aminotransferase 9 units/L (7-56); Albumin 3.5 g/dL (3.9-5); Calcium 8.3 mg/dL (8.4-10.2)
[2018-09-16] MEDS ORDERED: FLUOROMETHOLONE OU SCH (08:00)
[2018-09-16] MEDS ORDERED: BRINZOLAMIDE OU SCH (08:00)
[2018-09-16 08:02] LABS: BUN/Creatinine Ratio 22; Blood Urea Nitrogen 48 mg/dL (7-17)
[2018-09-16 08:03] LABS: Hemolysis Index 21
[2018-09-16] MEDS: COLACE PO SCH ×3 (08:14→21:36)
[2018-09-16] MEDS ORDERED: LEXISCAN IV ONE ×2 (08:41→08:43)
[2018-09-16] MEDS ORDERED: NON-FORMULARY (Ranitidine Hcl [Zantac] 150 MG) PO SCH (10:00)
[2018-09-16] MEDS ORDERED: NON-FORMULARY (Travoprost [Travatan Z 0.004%] 1 DROP) OU SCH (10:00)
[2018-09-16] MEDS ORDERED: SIMVASTATIN 40 MG PO SCH (10:00)
[2018-09-16] MEDS ORDERED: NON-FORMULARY (Lurasidone Hcl [Latuda] 120 MG) PO SCH (10:00)
[2018-09-16] MEDS ORDERED: RISPERIDONE 4 MG PO SCH (10:00)
[2018-09-16] MEDS: COREG PO SCH ×2 (10:34→21:37)
[2018-09-16] MEDS: RisperDAL PO SCH ×4 (10:36→21:39)
--- NOTE | 2018-09-16 10:45 | Progress Note ---
Assessment and Plan - Chest pain CE with normal, Continue with Oxygen,NTG, ASA, morphin Lexiscan - Acute on Chronic renal failure from prerenal azotemia BUN as of 09/02/2018 was 27 and a creatinine of 1.7 IV hydration We will trend -Schizophrenia with dementia Continue with present management - HTN Commence home meds and optimize paean meds - Prediabetic with A1c of 6.1% We will continue to trend. Has had episodes of hypoglycemia. We will continue to trend. We will Oral anti-glycemic agents. - DVT PPX with Lovenox Subjective Date of service: 09/16/18 Principal diagnosis: chest pain, acute on chronic renal failure Interval history: Chest tenderness to present. Denies any headache. No supra no nausea or vomiting Objective - Exam Narrative Exam: Constitutional: Well-nourished well-developed. Ambulates chronically with unstable gait. In no distress Head: Normocephalic atraumatic Eyes: Pupils are equal round and reactive to light Nose: No enlarged turbinates, no septal deviation. Mouth: Moist mucous membranes. Neck: Supple no thyromegaly. No bruit. No JVD Heart: Regular rate and rhythm, S1-S2 normal. No rubs murmurs or gallop Lungs: Clear to auscultation bilaterally. no rales or rhonchi Abdomen: Soft, nontender. Bowel sound are present. Extremities: No edema, no cyanosis, no clubbing. Neuro: Alert oriented Oriented x1. No focal sensory or motor deficit. Skin: No rashes or hyperpigmented spots Musculoskeletal system: No joint pain or swelling. Unstable gait Hematological: No petechia or subcutanous hemorrhages. Immunological: No multiple septic spots on the skin Lymphatic: No generalized lymphadenopathy Psychiatry: Euthymic. Calm. - Constitutional Vitals: Vital Signs - 12hr 09/15/18 09/15/18 09/16/18 23:36 23:37 00:53 Temperature 98.2 F Pulse Rate 65 65 65 Respiratory 17 Rate Blood Pressure 204/80 204/80 138/60 O2 Sat by Pulse 99 Oximetry 09/16/18 09/16/18 00:54 04:29 Temperature 98.1 F Pulse Rate 65 67 Respiratory 16 Rate Blood Pressure 144/64 O2 Sat by Pulse 99 99 Oximetry - Labs CBC & Chem 7: 09/16/18 05:21 09/16/18 05:21 Labs: Abnormal lab results 09/15/18 09/15/18 09/15/18 Range/Units 15:15 15:19 23:23 RBC (3.65-5.03) M/mm3 [place] % (Auto) 11.6 H 9.5 H (0.0-7.3) % Eos % (Auto) 6.2 H 6.9 H (0.0-4.3) % Chloride 108.1 H (98-107) mmol/L Carbon Dioxide (22-30) mmol/L BUN 50 H (7-17) mg/dL Creatinine 2.3 H (0.7-1.2) mg/dL Glucose 137 H (65-100) mg/dL Hemoglobin A1c (4-6) % Calcium (8.4-10.2) mg/dL Albumin (3.9-5) g/dL Triglycerides (2-149) mg/dL 09/15/18 09/15/18 09/16/18 Range/Units 23:23 23:23 05:21 RBC 3.62 L (3.65-5.03) M/mm3 [place] % (Auto) 11.0 H (0.0-7.3) % Eos % (Auto) 7.3 H (0.0-4.3) % Chloride 110.5 H (98-107) mmol/L Carbon Dioxide 18 L (22-30) mmol/L BUN 47 H (7-17) mg/dL Creatinine 2.3 H (0.7-1.2) mg/dL Glucose 160 H (65-100) mg/dL Hemoglobin A1c 6.1 H (4-6) % Calcium (8.4-10.2) mg/dL Albumin (3.9-5) g/dL Triglycerides 178 H (2-149) mg/dL 09/16/18 Range/Units 05:21 RBC (3.65-5.03) M/mm3 [place] % (Auto) (0.0-7.3) % Eos % (Auto) (0.0-4.3) % Chloride 110.5 H (98-107) mmol/L Carbon Dioxide 21 L (22-30) mmol/L BUN 48 H (7-17) mg/dL Creatinine 2.2 H (0.7-1.2) mg/dL Glucose 138 H (65-100) mg/dL Hemoglobin A1c (4-6) % Calcium 8.3 L (8.4-10.2) mg/dL Albumin 3.5 L (3.9-5) g/dL Triglycerides (2-149) mg/dL
[2018-09-16] MEDS: MIRALAX 3350 PO SCH (10:47)
[2018-09-16] MEDS: PEPCID PO SCH (11:14)
[2018-09-16] MEDS: APRESOLINE PO SCH ×2 (11:15→21:36)
[2018-09-16] MEDS: ECOTRIN PO SCH (11:16)
[2018-09-16] MEDS: COGENTIN PO SCH ×2 (11:16→21:37)
[2018-09-16] MEDS: ZOLOFT PO SCH (11:16)
[2018-09-16] MEDS: LOVENOX SUB-Q SCH (13:34)
[2018-09-16] MEDS: PRAVACHOL PO SCH (21:37)
[2018-09-16] MEDS: COMBIGAN 0.2-0.5% OU SCH (21:38)
[2018-09-16] MEDS: NACL 0.9% 1000 ML 1,000 ML IV SCH (22:54)
--- NOTE | 2018-09-17 01:58 | Treadmill Report ---
NUCLEAR PERFUSION STUDY REASON FOR STUDY: Chest pain. READING PHYSICIAN: Oracio Pressley MD IMAGING PROTOCOL: The patient received 10 mCi of Technetium 99m Tetrofosmin for resting image and 28 mCi of Technetium 99m Tetrofosmin for stress imaging. The imaging for the whole procedure was completed 30-90 minutes following the initial injection of Technetium 99m Tetrofosmin. The SPECT imaging in the 180 degree arc was performed in the right anterior oblique projection. Computerized reconstruction of the images was performed for analysis. IMAGING RESULTS: Normal cavity size from stress to rest. Normal distribution of radionuclide in the anterior, inferior, septal, and apical regions. Gated SPECT, EF greater than 63% with no wall motion abnormality. The patient infused Lexiscan with no EKG changes. SUMMARY: 1. Negative Lexiscan EKG. 2. Normal rest and stress myocardial perfusion scan. No significant stress ischemia. No wall motion abnormality. Gated SPECT, EF of 63%. JOB# [id number] MISHA/MARIELENA
[2018-09-17] MEDS: APRESOLINE IV PRN (05:36)
[2018-09-17 06:16] LABS: Basophils % (Auto) 0.9 % (0.0-1.8); Eosinophils # (Auto) 0.4 K/mm3 (0.0-0.4); Eosinophils % (Auto) 9.4 % (0.0-4.3); Hematocrit 32.8 % (30.3-42.9); Hemoglobin 10.5 gm/dl (10.1-14.3); Lymphocytes # (Auto) 1.5 K/mm3 (1.2-5.4); Lymphocytes % (Auto) 32.9 % (13.4-35.0); Mean Corpuscular HGB Conc 32 % (30-34); Mean Corpuscular Volume 90 fl (79-97); Monocytes # (Auto) 0.6 K/mm3 (0.0-0.8); Monocytes % (Auto) 12.1 % (0.0-7.3); Platelet Count 172 K/mm3 (140-440); Red Blood Count 3.66 M/mm3 (3.65-5.03)
[2018-09-17 06:40] LABS: Albumin 3.3 g/dL (3.9-5); Calcium 8.5 mg/dL (8.4-10.2)
[2018-09-17] MEDS: COLACE PO SCH ×3 (08:35→21:41)
[2018-09-17] MEDS: LATANOPROST 0.005% OU SCH ×2 (09:03→17:34)
[2018-09-17] MEDS: COMBIGAN 0.2-0.5% OU SCH ×3 (09:03→21:41)
--- NOTE | 2018-09-17 09:19 | Progress Note ---
Assessment and Plan - Chest pain Franky normal, Continue with Oxygen,NTG, ASA, morphin Lexiscan was normal - Acute on Chronic renal failure from prerenal azotemia BUN as of 09/02/2018 was 27 and a creatinine of 1.7 IV hydration Trend -Schizophrenia with dementia Continue with present management - HTN Commence home meds and optimize BP control - Prediabetic with A1c of 6.1% We will continue to trend. Has had episodes of hypoglycemia. We will continue to trend. We will hold Oral anti-glycemic agents. - DVT PPX with Lovenox - Dispositon: Optimize renal function with iv more hydration and d/c home in 1-2 days - ACP: Full code - Time spent 25 mins Subjective Date of service: 09/17/18 Principal diagnosis: chest pain, acute on chronic renal failure Interval history: Chest tenderness still present. Denies any headache. No supra no nausea or vomiting Objective - Exam Narrative Exam: Constitutional: Well-nourished well-developed. Ambulates chronically with unstable gait. In no distress Head: Normocephalic atraumatic Eyes: Pupils are equal round and reactive to light Nose: No enlarged turbinates, no septal deviation. Mouth: Moist mucous membranes. Neck: Supple no thyromegaly. No bruit. No JVD Heart: Regular rate and rhythm, S1-S2 normal. No rubs murmurs or gallop Lungs: Clear to auscultation bilaterally. no rales or rhonchi Abdomen: Soft, nontender. Bowel sound are present. Extremities: No edema, no cyanosis, no clubbing. Neuro: Alert oriented Oriented x1. No focal sensory or motor deficit. Skin: No rashes or hyperpigmented spots Musculoskeletal system: No joint pain or swelling. Unstable gait Hematological: No petechia or subcutanous hemorrhages. Immunological: No multiple septic spots on the skin Lymphatic: No generalized lymphadenopathy Psychiatry: Euthymic. Calm. - Constitutional Vitals: Vital Signs - 12hr 09/17/18 09/17/18 09/17/18 01:00 03:00 05:00 Temperature 98.1 F 97.4 F L Pulse Rate 53 L 50 L 52 L Respiratory 20 18 Rate Blood Pressure 133/44 195/71 Blood Pressure [Right] O2 Sat by Pulse 100 97 Oximetry 09/17/18 09/17/18 08:00 08:01 Temperature 97.6 F 97.6 F Pulse Rate 60 Respiratory 18 18 Rate Blood Pressure 174/67 Blood Pressure 174/67 [Right] O2 Sat by Pulse 98 Oximetry - Labs CBC & Chem 7: 09/18/18 08:27 09/17/18 05:57 Labs: Abnormal lab results 09/17/18 09/17/18 Range/Units 05:57 05:57 [place] % (Auto) 12.1 H (0.0-7.3) % Eos % (Auto) 9.4 H (0.0-4.3) % Chloride 107.6 H (98-107) mmol/L Carbon Dioxide 19 L (22-30) mmol/L BUN 46 H (7-17) mg/dL Creatinine 2.2 H (0.7-1.2) mg/dL Glucose 102 H (65-100) mg/dL Albumin 3.3 L (3.9-5) g/dL
[2018-09-17] MEDS: APRESOLINE PO SCH ×2 (11:31→21:41)
[2018-09-17] MEDS: COGENTIN PO SCH ×2 (11:31→21:42)
[2018-09-17] MEDS: LOVENOX SUB-Q SCH (11:31)
[2018-09-17] MEDS: ZOLOFT PO SCH (11:31)
[2018-09-17] MEDS: PEPCID PO SCH (11:31)
[2018-09-17] MEDS: ECOTRIN PO SCH (11:31)
[2018-09-17] MEDS: RisperDAL PO SCH ×4 (11:31→21:41)
[2018-09-17] MEDS: COREG PO SCH ×2 (11:31→21:41)
[2018-09-17] MEDS: NORVASC PO SCH (11:31)
[2018-09-17] MEDS: NACL 0.9% 1000 ML 1,000 ML IV SCH ×2 (11:34→21:39)
[2018-09-17] MEDS: MIRALAX 3350 PO SCH (11:36)
[2018-09-17] MEDS: PRAVACHOL PO SCH (21:41)
[2018-09-18] MEDS: APRESOLINE IV PRN (04:46)
[2018-09-18 08:54] LABS: Basophils % (Auto) 0.7 % (0.0-1.8); Eosinophils # (Auto) 0.4 K/mm3 (0.0-0.4); Eosinophils % (Auto) 7.2 % (0.0-4.3); Hematocrit 31.3 % (30.3-42.9); Hemoglobin 10.1 gm/dl (10.1-14.3); Lymphocytes # (Auto) 1.9 K/mm3 (1.2-5.4); Lymphocytes % (Auto) 34.1 % (13.4-35.0); Mean Corpuscular HGB Conc 32 % (30-34); Mean Corpuscular Volume 88 fl (79-97); Monocytes # (Auto) 0.6 K/mm3 (0.0-0.8); Monocytes % (Auto) 10.7 % (0.0-7.3); Platelet Count 191 K/mm3 (140-440); Red Blood Count 3.54 M/mm3 (3.65-5.03)
--- NOTE | 2018-09-18 09:07 | Progress Note ---
Assessment and Plan - Chest pain likely from costochondritis Franky normal, Lexiscan Stress test was normal Continue with ASA, morphin - Acute on Chronic renal failure from prerenal azotemia BUN as of 09/02/2018 was 27 and a creatinine of 1.7 IV hydration Nephrology consult. Discussed with Dr. Morales -Schizophrenia with dementia Continue with present management - HTN Commence home meds and optimize BP control - Prediabetic with A1c of 6.1% We will continue to trend blood sugar. Has had episodes of hypoglycemia. We will hold Oral anti-glycemic agents. - DVT PPX with Lovenox - Dispositon: Optimize renal function with iv more hydration and d/c home in 1-2 days - ACP: Full code - Time spent 25 mins Subjective Date of service: 09/18/18 Principal diagnosis: chest pain, acute on chronic renal failure Interval history: Chest tenderness improving. Denies any headache. No nausea or vomiting. Objective - Exam Narrative Exam: Constitutional: Well-nourished well-developed. Ambulates chronically with unstable gait. In no distress Head: Normocephalic atraumatic Eyes: Pupils are equal round and reactive to light Nose: No enlarged turbinates, no septal deviation. Mouth: Moist mucous membranes. Neck: Supple no thyromegaly. No bruit. No JVD Heart: Regular rate and rhythm, S1-S2 normal. No rubs murmurs or gallop Lungs: Clear to auscultation bilaterally. no rales or rhonchi Abdomen: Soft, nontender. Bowel sound are present. Extremities: No edema, no cyanosis, no clubbing. Neuro: Alert oriented Oriented x1. No focal sensory or motor deficit. Skin: No rashes or hyperpigmented spots Musculoskeletal system: No joint pain or swelling. Unstable gait Hematological: No petechia or subcutanous hemorrhages. Immunological: No multiple septic spots on the skin Lymphatic: No generalized lymphadenopathy Psychiatry: Euthymic. Calm. - Constitutional Vitals: Vital Signs - 12hr 09/18/18 09/18/18 09/18/18 01:06 04:28 05:00 Temperature 98.3 F 97.9 F Pulse Rate 55 L 61 62 Respiratory 20 20 Rate Blood Pressure 113/62 190/72 O2 Sat by Pulse 99 98 Oximetry 09/18/18 08:14 Temperature 97.9 F Pulse Rate 68 Respiratory 18 Rate Blood Pressure 146/50 O2 Sat by Pulse 98 Oximetry - Labs CBC & Chem 7: 09/18/18 08:27 09/18/18 08:27 Labs: Abnormal lab results 09/17/18 09/18/18 Range/Units 08:05 08:27 RBC 3.54 L (3.65-5.03) M/mm3 [place] % (Auto) 10.7 H (0.0-7.3) % Eos % (Auto) 7.2 H (0.0-4.3) % POC Glucose 110 H (70-105)
[2018-09-18 09:23] LABS: Albumin 3.2 g/dL (3.9-5); Calcium 8.5 mg/dL (8.4-10.2)
[2018-09-18] MEDS: COMBIGAN 0.2-0.5% OU SCH ×2 (09:46→22:19)
[2018-09-18] MEDS: PEPCID PO SCH (09:49)
[2018-09-18] MEDS: COLACE PO SCH ×2 (09:49→15:19)
[2018-09-18] MEDS: COREG PO SCH ×2 (09:57→22:24)
[2018-09-18] MEDS: MIRALAX 3350 PO SCH (09:57)
[2018-09-18] MEDS: APRESOLINE PO SCH ×2 (09:58→22:19)
[2018-09-18] MEDS: ZOLOFT PO SCH (09:58)
[2018-09-18] MEDS: LOVENOX SUB-Q SCH (09:59)
[2018-09-18] MEDS: NORVASC PO SCH (09:59)
[2018-09-18] MEDS: COGENTIN PO SCH ×2 (10:10→22:17)
[2018-09-18] MEDS: ECOTRIN PO SCH (10:11)
[2018-09-18] MEDS: RisperDAL PO SCH ×4 (10:12→22:22)
--- NOTE | 2018-09-18 11:31 | Consultation ---
History of Present Illness - Reason for Consult Consult date: 09/18/18 acute renal failure Requesting physician: JANELLE BURGESS - History of Present Illness 62-year-old lady with history of hypertension, congestive heart failure ejection fraction 45-50% and dementia/schizophrenia. Patient was admitted on account of 1 month history of headache and chest pain. She also complains of abdominal pain in both flanks. It is sharp pain radiating to the groin bilaterally. Pain is constant with no known aggravating or relieving factors. There is associated nausea but no vomiting. She also had some episodes of diarrhea for 2-3 days. On account of ongoing symptoms, patient came to the hospital for evaluation. BUN and creatinine were elevated at 50/3.2 mg/dL. I am consulted to assist with managing this. Patient denies any voiding difficulties. No frequency or urgency or dysuria. She has not been using any nonsteroidal anti-inflammatory drugs and she has not been exposed to contrast recently. 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 denies: smoking (quit 20 years ago), alcohol abuse, prescription drug abuse Family history: no significant family history, cancer (father of leukemia), other (mother of congestive heart failure) Medications and Allergies Allergies Allergy/AdvReac Type Severity Reaction Status Date / Time citric acid Allergy Unknown Verified 09/16/13 12:34 haloperidol [From Haldol] Allergy Unknown Verified 09/16/13 12:34 haloperidol lactate Allergy Unknown Verified 09/16/13 12:34 [From Haldol] Home Medications Medication Instructions Recorded Confirmed Last Taken Type Fluorometholone [Fml Forte 0.25% 1 drops OU TID 09/19/13 04/13/15 Unknown History eye drops] Ranitidine HCl [Zantac] 150 mg PO DAILY 09/19/13 04/13/15 Unknown History Simvastatin (Nf) [Zocor TAB] 40 mg PO DAILY 09/19/13 04/13/15 Unknown History Travoprost [Travatan Z 0.004%] 1 drop OU DAILY 09/19/13 04/13/15 Unknown History Aspirin [Aspirin BABY CHEW TAB] 81 mg PO DAILY 12/09/15 12/09/15 Unknown History Docusate Sodium [Colace CAP] 100 mg PO TID 04/13/15 04/13/15 Unknown History Polyethylene Glycol 3350 [Miralax 17 gm PO DAILY 04/13/15 04/13/15 Unknown History 3350] Acetaminophen [Acetaminophen TAB] 650 mg PO Q6H PRN tablet 04/19/15 Unknown Rx Benztropine [Cogentin] 1 mg PO BID #60 tablet 04/19/15 Unknown Rx Brimonidine/Timolol 0.2-0.5% 1 drops OU Q12HR #1 bottle 04/19/15 Unknown Rx [Combigan 0.2-0.5%] Brinzolamide [Azopt 1%] 1 drops OU TID #90 drops.susp 04/19/15 Unknown Rx Butalb/Acetamin/Caff 50-325-40 50 mg PO DAILY PRN #30 tablet 04/19/15 Unknown Rx [Fioricet 50-325-40] Carvedilol [Coreg] 6.25 mg PO BID #60 tablet 04/19/15 Unknown Rx Lurasidone HCl [Latuda] 120 mg PO QDAY #30 tablet 04/19/15 Unknown Rx Ondansetron [Zofran TAB] 4 mg PO DAILY PRN #30 tablet 04/19/15 Unknown Rx Sertraline [Zoloft] 25 mg PO DAILY #30 tablet 04/19/15 Unknown Rx guaiFENesin DM [Robitussin Dm] 10 ml PO Q6H PRN #1 oral.liqd 04/19/15 Unknown Rx risperiDONE [RisperiDONE] 4 mg PO BID #60 tab.rapdis 04/19/15 Unknown Rx Dextrose 50% in Water [D50W (25GM) 50 ml IV PRN PRN syringe 08/08/18 Unknown Rx Syringe] hydrALAZINE [Apresoline TAB] 25 mg PO BID #60 tablet 08/08/18 Unknown Rx Active Meds: Active Medications Acetaminophen (Tylenol) 650 mg PO Q6H PRN PRN Reason: For Pain/Fever/Headache Acetaminophen/Butalbital/Caffeine (Fioricet) 1 tab PO DAILY PRN PRN Reason: Headache Amlodipine Besylate (Norvasc) 10 mg PO QDAY AMA Last Admin: 09/18/18 09:59 Dose: 10 mg Documented by: Aspirin (Ecotrin) 325 mg PO QDAY [facility] Last Admin: 09/18/18 10:11 Dose: 325 mg Documented by: Atorvastatin Calcium (Lipitor) 20 mg PO QHS [facility] Last Admin: 09/17/18 21:42 Dose: 20 mg Documented by: Benztropine Mesylate (Cogentin) 1 mg PO BID [facility] Last Admin: 09/18/18 10:10 Dose: 1 mg Documented by: Brimonidine/Timolol (Combigan 0.2-0.5%) 1 drops OU Q12HR [facility] Last Admin: 09/18/18 09:46 Dose: 1 drops Documented by: Carvedilol (Coreg) 25 mg PO BID [facility] Last Admin: 09/18/18 09:57 Dose: 25 mg Documented by: Dextrose (D50w (25gm) Syringe) 50 ml IV PRN PRN PRN Reason: Hypoglycemia Docusate Sodium (Colace) 100 mg PO TID [facility] Last Admin: 09/18/18 09:49 Dose: 100 mg Documented by: Enoxaparin Sodium (Lovenox) 30 mg SUB-Q QDAY [facility] Last Admin: 09/18/18 09:59 Dose: 30 mg Documented by: Famotidine (Pepcid) 20 mg PO DAILY [facility] Last Admin: 09/18/18 09:49 Dose: 20 mg Documented by: Hydralazine HCl (Apresoline) 10 mg IV Q6HR PRN PRN Reason: SBP >170 Last Admin: 09/18/18 04:46 Dose: 10 mg Documented by: Hydralazine HCl (Apresoline) 25 mg PO BID [facility] Last Admin: 09/18/18 09:58 Dose: 25 mg Documented by: Latanoprost (Latanoprost 0.005%) 1 drops OU QPM [facility] Last Admin: 09/17/18 17:34 Dose: 1 drops Documented by: Miscellaneous Medication (Brinzolamide [Azopt 1%]) 1 drops OU TID [facility] Miscellaneous Medication (Lurasidone Hcl [Latuda]) 120 mg PO QDAY [facility] Miscellaneous Medication (Fluorometholone [Fml Forte 0.25% Eye Drops]) 1 drops OU TID [facility] Morphine Sulfate (Morphine) 2 mg IV Q5MIN PRN PRN Reason: Chest Pain unrelieved by NTG Last Admin: 09/16/18 00:39 Dose: 2 mg Documented by: Pneumococcal Polyvalent Vaccine (Pneumovax 23) 0.5 ml IM .ONCE ONE Stop: 09/18/18 12:01 Polyethylene Glycol (Miralax 3350) 17 gm PO DAILY [facility] Last Admin: 09/18/18 09:57 Dose: 17 gm Documented by: Pravastatin Sodium (Pravachol) 80 mg PO QHS [facility] Last Admin: 09/17/18 21:41 Dose: 80 mg Documented by: Risperidone (Risperdal) 3 mg PO BID [facility] Last Admin: 09/18/18 10:12 Dose: 3 mg Documented by: Risperidone (Risperdal) 1 mg PO BID [facility] Last Admin: 09/18/18 10:35 Dose: 1 mg Documented by: Sertraline HCl (Zoloft) 25 mg PO DAILY [facility] Last Admin: 09/18/18 09:58 Dose: 25 mg Documented by: Sodium Chloride (Sodium Chloride Flush Syringe 10 Ml) 10 ml IV PRN PRN PRN Reason: LINE FLUSH Review of Systems All systems: negative (Constitutional: no fever to chills. No anorexia or weight loss. HEENT: No sore throat, admits to sinus drainage no hearing or vision impairment . Cardiovascular: No chest pain, shortness of breath, admits to palpitations and lower extremity swelling but no dizziness. Respiratory: Admits to cough productive of clear sputum, No shortness of breath, hemoptysis or wheezing. Gastrointestinal: No nausea, vomiting, diarrhea, abdominal pain, hematemesis or melena. Genitourinary: No frequency urgency dysuria or hematuria. hematologic: No abnormal bleeding but admits to easy bruising. Integumentary: Admits to itching but no rash. Neurological: Admits to headache and dizziness, no focal weakness or numbness, no syncope or seizures. Musculoskeletal: Admits to joint pains in legs. No stiffness. Psychiatry: no anxiety but admits to depression) Exam - Vital Signs Vital signs: Vital Signs Temp Pulse Resp BP Pulse Ox 97.7 F 56 L 18 210/69 100 09/15/18 14:28 09/15/18 14:28 09/15/18 14:28 09/15/18 14:28 09/15/18 14:28 - Physical Exam Narrative exam: Elderly, comfortable lying in bed in no acute distress HEENT: NCAT, pink oral mucous membrane Neck: Supple, no venous distention CVS: S1S2 RRR with no murmur, rub or gallop Chest: Clear to auscultation Abdomen: Protuberant, soft, nontender, no organomegaly, bowel sounds are present Extremities: No edema Skin: Hypopigmented patches in her face Neuro: Awake, alert no focal deficits Results - Lab Results 09/18/18 08:27 09/18/18 08:27 Most recent lab results Calcium 8.5 mg/dL (8.4-10.2) 09/18/18 08:27 Magnesium 2.30 mg/dL (1.7-2.3) 09/16/18 05:21 Assessment and Plan - Patient Problems (1) Acute kidney failure Current Visit: Yes Status: Acute Plan to address problem: Acute kidney injury is probably Prerenal azotemia secondary to volume depletion. Kidney function is improving. Continue volume repletion. Get urine studies. Follow-up electrolytes and renal function (2) Congestive heart failure Current Visit: Yes Status: Acute Plan to address problem: Monitor volume status closely with volume repletion given history of congestive heart failure (3) Hypertensive chronic kidney disease with stage 1 through stage 4 chronic kidney disease, or unspecified chronic kidney disease Current Visit: Yes Status: Acute Plan to address problem: Follow-up blood pressure on current medications. (4) Metabolic acidosis Current Visit: Yes Status: Acute Plan to address problem: Follow-up bicarbonate with improving renal function. Consider starting by mouth sodium bicarbonate if not improving (5) Chronic kidney disease (CKD) Current Visit: No Status: Acute Qualifiers: Chronic kidney disease stage: unspecified stage Qualified Code(s): N18.9 - Chronic kidney disease, unspecified Plan to address problem: Chronic kidney disease stage 3/4. Presumably hypertensive nephrosclerosis.
[2018-09-18] MEDS ORDERED: NACL 0.9% 1000 ML 1,000 ML IV SCH (12:00)
[2018-09-18] MEDS ORDERED: AFLURIA QUAD 2018-2019 SYRINGE IM ONE (12:00)
[2018-09-18] MEDS ORDERED: PNEUMOVAX 23 IM ONE (12:00)
[2018-09-18] MEDS: LATANOPROST 0.005% OU SCH (19:14)
[2018-09-18] MEDS: PRAVACHOL PO SCH (22:17)
[2018-09-19] MEDS: COLACE PO SCH ×2 (04:20→09:59)
--- NOTE | 2018-09-19 09:30 | Progress Note ---
Assessment and Plan - Patient Problems (1) Acute kidney failure Current Visit: Yes Status: Acute Plan to address problem: Acute kidney injury is probably Prerenal azotemia secondary to volume depletion. Kidney function is improving. Discontinue intravenous fluids. Patient, discharged home from renal standpoint.. Follow-up electrolytes and renal f unction as an outpatient in 2 weeks (2) Congestive heart failure Current Visit: Yes Status: Acute Plan to address problem: Volume status remains stable (3) Hypertensive chronic kidney disease with stage 1 through stage 4 chronic kidney disease, or unspecified chronic kidney disease Current Visit: Yes Status: Acute Plan to address problem: Follow-up blood pressure on current medications. (4) Metabolic acidosis Current Visit: Yes Status: Acute Plan to address problem: Follow-up bicarbonate with improving renal function. Start by mouth sodium bicarbonate and follow up Bicarbonate level as an outpatient (5) Chronic kidney disease (CKD) Current Visit: No Status: Acute Qualifiers: Chronic kidney disease stage: unspecified stage Qualified Code(s): N18.9 - Chronic kidney disease, unspecified Plan to address problem: Chronic kidney disease stage 3/4. Presumably hypertensive nephrosclerosis. Subjective Date of service: 09/19/18 Principal diagnosis: chest pain, acute on chronic renal failure Interval history: Patient seen lying in bed. She is feeling better. Denies any chest pain shortness of breath. Had nausea earlier but feels better now and tolerated her breakfast Objective - Exam Narrative Exam: Elderly, comfortable lying in bed in no acute distress HEENT: NCAT, pink oral mucous membrane Neck: Supple, no venous distention CVS: S1S2 RRR with no murmur, rub or gallop Chest: Clear to auscultation Abdomen: Protuberant, soft, nontender, no organomegaly, bowel sounds are present Extremities: No edema Skin: Hypopigmented patches in her face Neuro: Awake, alert no focal deficits - Vital Signs Vital signs: Vital Signs - 12hr 09/18/18 09/18/18 09/18/18 22:00 22:19 22:24 Temperature Pulse Rate 61 61 Respiratory 18 Rate Blood Pressure 131/57 131/57 O2 Sat by Pulse Oximetry 09/18/18 09/19/18 09/19/18 23:07 05:00 05:04 Temperature 98.0 F 98.0 F Pulse Rate 54 L 64 Respiratory 18 18 Rate Blood Pressure 133/57 151/66 O2 Sat by Pulse 100 Oximetry 09/19/18 07:45 Temperature 98.6 F Pulse Rate 64 Respiratory 18 Rate Blood Pressure 168/64 O2 Sat by Pulse 52 L Oximetry - Lab 09/18/18 08:27 09/18/18 08:27 Most recent lab results Calcium 8.5 mg/dL (8.4-10.2) 09/18/18 08:27 Magnesium 2.30 mg/dL (1.7-2.3) 09/16/18 05:21 Medications & Allergies - Medications Allergies/Adverse Reactions: Allergies citric acid Allergy (Verified 09/16/13 12:34) Unknown haloperidol [From Haldol] Allergy (Verified 09/16/13 12:34) Unknown haloperidol lactate [From Haldol] Allergy (Verified 09/16/13 12:34) Unknown Home Medications: Home Medications Medication Instructions Recorded Confirmed Last Taken Type Fluorometholone [Fml Forte 0.25% 1 drops OU TID 09/19/13 04/13/15 Unknown History eye drops] Ranitidine HCl [Zantac] 150 mg PO DAILY 09/19/13 04/13/15 Unknown History Simvastatin (Nf) [Zocor TAB] 40 mg PO DAILY 09/19/13 04/13/15 Unknown History Travoprost [Travatan Z 0.004%] 1 drop OU DAILY 09/19/13 04/13/15 Unknown History Aspirin [Aspirin BABY CHEW TAB] 81 mg PO DAILY 04/13/15 04/13/15 Unknown History Docusate Sodium [Colace CAP] 100 mg PO TID 04/13/15 04/13/15 Unknown History Polyethylene Glycol 3350 [Miralax 17 gm PO DAILY 04/13/15 04/13/15 Unknown History 3350] Acetaminophen [Acetaminophen TAB] 650 mg PO Q6H PRN tablet 04/19/15 Unknown Rx Benztropine [Cogentin] 1 mg PO BID #60 tablet 04/19/15 Unknown Rx Brimonidine/Timolol 0.2-0.5% 1 drops OU Q12HR #1 bottle 04/19/15 Unknown Rx [Combigan 0.2-0.5%] Brinzolamide [Azopt 1%] 1 drops OU TID #90 drops.susp 04/19/15 Unknown Rx Butalb/Acetamin/Caff 50-325-40 50 mg PO DAILY PRN #30 tablet 04/19/15 Unknown Rx [Fioricet 50-325-40] Carvedilol [Coreg] 6.25 mg PO BID #60 tablet 04/19/15 Unknown Rx Lurasidone HCl [Latuda] 120 mg PO QDAY #30 tablet 04/19/15 Unknown Rx Ondansetron [Zofran TAB] 4 mg PO DAILY PRN #30 tablet 04/19/15 Unknown Rx Sertraline [Zoloft] 25 mg PO DAILY #30 tablet 04/19/15 Unknown Rx guaiFENesin DM [Robitussin Dm] 10 ml PO Q6H PRN #1 oral.liqd 04/19/15 Unknown Rx risperiDONE [RisperiDONE] 4 mg PO BID #60 tab.rapdis 04/19/15 Unknown Rx Dextrose 50% in Water [D50W (25GM) 50 ml IV PRN PRN syringe 08/08/18 Unknown Rx Syringe] hydrALAZINE [Apresoline TAB] 25 mg PO BID #60 tablet 08/08/18 Unknown Rx Active Medications: Generic Name Dose Route Start Last Admin Trade Name Freq PRN Reason Stop Dose Admin Acetaminophen 650 mg 09/15/18 22:47 Tylenol PO Q6H PRN For Pain/Fever/Headache Acetaminophen/Butalbital/Caffeine 1 tab 09/15/18 22:47 Fioricet PO DAILY PRN Headache Amlodipine Besylate 10 mg 09/17/18 10:00 09/18/18 09:59 Norvasc PO 10 mg QDAY AMA Administration Aspirin 325 mg 09/16/18 10:00 09/18/18 10:11 Ecotrin PO 325 mg QDAY AMA Administration Atorvastatin Calcium 20 mg 09/16/18 22:00 09/18/18 22:17 Lipitor PO 20 mg QHS AMA Administration Benztropine Mesylate 1 mg 09/16/18 10:00 09/18/18 22:17 Cogentin PO 1 mg BID AMA Administration Brimonidine/Timolol 1 drops 09/16/18 10:00 09/18/18 22:19 Combigan 0.2-0.5% OU 1 drops Q12HR AMA Administration Carvedilol 25 mg 09/15/18 23:00 09/18/18 22:24 Coreg PO 25 mg BID AMA Administration Dextrose 50 ml 09/15/18 22:47 D50w (25gm) Syringe IV PRN PRN Hypoglycemia Docusate Sodium 100 mg 09/16/18 08:00 09/19/18 04:20 Colace PO Not Given TID AMA Enoxaparin Sodium 30 mg 09/16/18 13:00 09/18/18 09:59 Lovenox SUB-Q 30 mg QDAY AMA Administration Famotidine 20 mg 09/16/18 10:00 09/18/18 09:49 Pepcid PO 20 mg DAILY AMA Administration Hydralazine HCl 10 mg 09/15/18 21:51 09/18/18 04:46 Apresoline IV 10 mg Q6HR PRN Administration SBP >170 Hydralazine HCl 25 mg 09/15/18 23:00 09/18/18 22:19 Apresoline PO 25 mg BID AMA Administration Sodium Chloride 1,000 mls @ 100 mls/hr 09/18/18 12:00 09/19/18 04:18 Nacl 0.9% 1000 Ml IV 100 mls/hr DIRECT AMA Administration Latanoprost 1 drops 09/16/18 18:00 09/18/18 19:14 Latanoprost 0.005% OU 1 drops QPM AMA Administration Miscellaneous Medication 1 drops 09/16/18 08:00 Brinzolamide [Azopt 1%] OU TID AMA Miscellaneous Medication 120 mg 09/16/18 10:00 Lurasidone Hcl [Latuda] PO QDAY [facility] Miscellaneous Medication 1 drops 09/16/18 08:00 Fluorometholone [Fml Forte 0.25% Eye Drops] OU TID AMA Morphine Sulfate 2 mg 09/15/18 22:40 09/16/18 00:39 Morphine IV 2 mg Q5MIN PRN Administration Chest Pain unrelieved by NTG Polyethylene Glycol 17 gm 09/16/18 10:00 09/18/18 09:57 Miralax 3350 PO 17 gm DAILY AMA Administration Pravastatin Sodium 80 mg 09/16/18 22:00 09/18/18 22:17 Pravachol PO 80 mg QHS AMA Administration Risperidone 3 mg 09/16/18 10:00 09/18/18 22:17 Risperdal PO 3 mg BID AMA Administration Risperidone 1 mg 09/16/18 10:00 09/18/18 22:22 Risperdal PO 1 mg BID AMA Administration Sertraline HCl 25 mg 09/16/18 10:00 09/18/18 09:58 Zoloft PO 25 mg DAILY AMA Administration Sodium Bicarbonate 650 mg 09/19/18 14:00 Sodium Bicarbonate PO TID AMA Sodium Chloride 10 ml 09/15/18 22:40 Sodium Chloride Flush Syringe 10 Ml IV PRN PRN LINE FLUSH
[2018-09-19] MEDS: LOVENOX SUB-Q SCH (09:56)
[2018-09-19] MEDS: COGENTIN PO SCH (09:57)
[2018-09-19] MEDS: APRESOLINE PO SCH (09:57)
[2018-09-19] MEDS: ECOTRIN PO SCH (09:57)
[2018-09-19] MEDS: NORVASC PO SCH (09:57)
[2018-09-19] MEDS: COREG PO SCH (09:58)
[2018-09-19] MEDS: RisperDAL PO SCH ×2 (09:58→09:59)
[2018-09-19] MEDS: PEPCID PO SCH (09:58)
--- NOTE | 2018-09-19 09:59 | Discharge Summary ---
Providers - Providers Date of Admission: 09/16/18 14:47 Date of discharge: 09/19/18 Attending physician: JANELLE BURGESS 09/18/18 10:10 Consult to Physician [CONS] Routine Comment: Consulting Provider: JUSTIN HAYES Physician Instructions: Reason For Exam: acute on chronic renal failure Primary care physician: VERÓNICA VENTURA Hospitalization Reason for admission: chest pain, acute on chronic renal failure Condition: Stable Pertinent studies: EKG shows evidence of left ventricular apical, CT scan of the head that was unremarkable for any acute events Stress thallium was negative for any ischemic changes Procedures: None Hospital course: Patient is a 62-year-old lady who resides in personal [facility] with a history of hypertension, mild chronic heart failure with ejection fraction of 45-50%, schizophrenia with dementia, chronic renal failure, hyperlipidemia presented to my office today in company of her sister, complaint on this chest pain and headache. Onset was about a month ago per patient. History is not reliable given her dementia and schizophrenia. However her sister said the patient had indicated that she is full code to which patient consented while in my office. She was disposed to admission to the hospital and evaluation for chest pain. Direct admission was therefore ordered. Initial set of cardiac enzymes were normal. Patient had elevated BUN and creatinine of 50 and 3.2. At baseline Creatinine was 1.7 as of July 2018. Head CT showed no acute evnet. Denies any nausea vomiting. No loss of consciousness. Does not have any blurred vision. Admission for further evaluation was ordered. This was commenced on oxygen, nitroglycerin, aspirin and morphine. Stress thallium was ordered. Report was negative. This was cleansed on IV hydration for her prerenal as a team. BUN and creatinine improved. Nephrology consult was obtained for ongoing follow-up. Had metabolic acidosis for which she was commenced on sodium bicarbonate The patient claimed that he had diarrhea however diarrhea was 1-2 times a day. She is being discharged today to follow up with PCP in 5 days and nephrology in 7 days. Disposition: [id number] HOME UNDER HOME [facility] Time spent for discharge: 40 min - Discharge Diagnoses (1) Acute kidney failure Status: Acute (2) Chest pain Status: Acute (3) Congestive heart failure Status: Acute (4) Diabetes mellitus Status: Acute (5) Headache Status: Acute (6) Hypertensive chronic kidney disease with stage 1 through stage 4 chronic kidney disease, or unspecified chronic kidney disease Status: Acute (7) Metabolic acidosis Status: Acute Core Measure Documentation - Palliative Care Palliative Care/ Comfort Measures: Not Applicable - Core Measures Any of the following diagnoses?: heart failure, none - Heart Failure Discharge Requirements KARINA/ARB for LVSD if EF <40%: Yes Beta mercedez at discharge: Yes Exam - Physical Exam Narrative exam: Constitutional: Well-nourished well-developed. Ambulates chronically with unstable gait. In no distress Head: Normocephalic atraumatic Eyes: Pupils are equal round and reactive to light Nose: No enlarged turbinates, no septal deviation. Mouth: Moist mucous membranes. Neck: Supple no thyromegaly. No bruit. No JVD Heart: Regular rate and rhythm, S1-S2 normal. No rubs murmurs or gallop Lungs: Clear to auscultation bilaterally. no rales or rhonchi Abdomen: Soft, nontender. Bowel sound are present. Extremities: No edema, no cyanosis, no clubbing. Neuro: Alert oriented Oriented x1. No focal sensory or motor deficit. Skin: No rashes or hyperpigmented spots Musculoskeletal system: No joint pain or swelling. Unstable gait Hematological: No petechia or subcutanous hemorrhages. Immunological: No multiple septic spots on the skin Lymphatic: No generalized lymphadenopathy Psychiatry: Euthymic. Calm. - Constitutional Vitals: Temp Pulse Resp BP Pulse Ox 98.6 F 64 18 168/64 52 L 09/19/18 07:45 09/19/18 07:45 09/19/18 07:45 09/19/18 07:45 09/19/18 07:45 Plan Activity: fall precautions Weight Bearing Status: Non-Weight Bearing Diet: low salt Follow up with: VERÓNICA VENTURA MD [Primary Care Provider] - 6 Weeks JANELLE BURGESS MD [Staff Physician] - 7 Days Prescriptions: hydrALAZINE [Apresoline TAB] 25 mg PO BID #60 tablet Aspirin [Aspirin BABY CHEW TAB] 81 mg PO DAILY #30 tab.chew Benztropine [Cogentin] 1 mg PO BID #60 tablet Docusate Sodium [Colace CAP] 100 mg PO TID #90 capsule Carvedilol [Coreg] 6.25 mg PO BID #60 tablet AtorvaSTATin [Lipitor] 20 mg PO QHS #30 tablet Polyethylene Glycol 3350 [Miralax 3350] 17 gm PO DAILY #30 powd.pack amLODIPine [Norvasc] 10 mg PO QDAY #30 tablet Pravastatin [Pravachol] 80 mg PO QHS #30 tablet risperiDONE [RisperDAL] 3 mg PO BID #60 tablet
[2018-09-19] MEDS: COMBIGAN 0.2-0.5% OU SCH (10:01)
[2018-09-19] MEDS: MIRALAX 3350 PO SCH (10:05)
[2018-09-19] MEDS: ZOLOFT PO SCH (10:05)
[2018-09-19 12:27] VITALS: BP 160/59
[2018-09-19] MEDS ORDERED: SODIUM BICARBONATE PO SCH (14:00)
== END 2018-09-19 13:07 | disposition home health service (06) | DRG 683 ==
LOC: EDBD 14:01 → ED 14:01 → 4A 18:26 → OBSVTOIN 09-16 14:47
PROVIDERS: ADMIT Family Medicine; ATTEND Family Medicine
DX: N17.9 Acute kidney failure, unspecified (principal); I13.0 Hypertensive heart and chronic kidney disease with heart failure and stage 1 through stage 4 chronic kidney disease, or unspecified chronic kidney disease; E87.2 Acidosis; N18.4 Chronic kidney disease, stage 4 (severe); E78.5 Hyperlipidemia, unspecified; E11.22 Type 2 diabetes mellitus with diabetic chronic kidney disease; E11.649 Type 2 diabetes mellitus with hypoglycemia without coma; E86.9 Volume depletion, unspecified; F03.90 Unspecified dementia, unspecified severity, without behavioral disturbance, psychotic disturbance, mood disturbance, and anxiety; F20.9 Schizophrenia, unspecified; Z88.8 Allergy status to other drugs, medicaments and biological substances; Z79.82 Long term (current) use of aspirin; Z79.899 Other long term (current) drug therapy; Z79.84 Long term (current) use of oral hypoglycemic drugs
CPT/HCPCS: 36415; 70450; 71045; 78452; 80048; 80053; 80061; 82962; 83036; 83735; 84484; 85025; 85610; 85730; 90686; 90732; 93005; 93010; 93017; G0378; A9270-GY; A9502; J0360; J1650; J2270; J2785; J7030